=== PATIENT | male | born 1945 | race Hispanic/Latino ===

== ENCOUNTER 2021-02-28 11:28 | Emergency (ER) | payer OTHER ==
--- NOTE | 2021-02-28 12:52 | RAD REPORT ---
EXAM DESCRIPTION: US - Extremity Venous Uni Ltd - 02/28/2021 12:40 pm CLINICAL HISTORY: Pain;Swelling Leg swelling and edema. COMPARISON: No comparisons FINDINGS: Right lower extremity venous system was interrogated with Doppler technique. Normal flow, compressibility and augmentation was noted. There is no DVT present. IMPRESSION: No evidence of right lower extremity deep venous thrombosis.
--- NOTE | 2021-02-28 14:40 | ER ---
Nurse's Notes [facility] Name: Barron Stiles Age: 75 yrs Sex: Male : 1945 Arrival Date: 02/28/2021 Time: 11:50 Bed 7 Private MD: Diagnosis: Pain in right lower leg Presentation: 02/28 12:11 Chief complaint: Patient states: Was sent from the [place] clinic across the street 30 mins ca1 [employer] to r/o DVT on R leg. Reports R calf tenderness x 2 days. Denies HX of blood clots. Not on blood thinners. Coronavirus screen: Client denies travel out of the [place] in the last 14 days. At this time, the client does not indicate any symptoms associated with coronavirus-19. Ebola Screen: Patient negative for fever greater than or equal to 101.5 degrees Fahrenheit, and additional compatible Ebola Virus Disease symptoms Patient denies exposure to infectious person. Patient denies travel to an Ebola-affected area in the 21 days before illness onset. No symptoms or risks identified at this time. Initial Sepsis Screen: Does the patient meet any 2 criteria? No. Patient's initial sepsis screen is negative. Does the patient have a suspected source of infection? No. Patient's initial sepsis screen is negative. Risk Assessment: Do you want to hurt yourself or someone else? Patient reports no desire to harm self or others. Onset of symptoms was February 28, 2021. 12:11 Method Of Arrival: Ambulatory ca1 12:11 Acuity: KRISTINA 3 ca1 Historical: - Allergies: 12:13 No Known Allergies; ca1 - PMHx: 12:13 Diabetes mellitus; Hypercholesterolemia; Depressive disorder; ca1 - PSHx: 12:13 Liver Cancer Surgery; ca1 - Immunization history:: Client reports receiving the 2nd dose of the Covid vaccine, Client reports receiving the 1st dose of the Covid vaccine, Pneumococcal vaccine is up to date, Flu vaccine is up to date. - Social history:: Smoking status: Patient denies any tobacco usage or history of. Screenin:03 Abuse screen: Denies threats or abuse. Denies injuries from another. Nutritional jl7 screening: No deficits noted. Tuberculosis screening: No symptoms or risk factors identified. Fall Risk None identified. Assessment: 14:03 General: Appears in no apparent distress. uncomfortable, Behavior is calm, cooperative, jl7 appropriate for age. Pain: Complains of pain in right hip and right calf Pain currently is 4 out of 10 on a pain scale. Pain began 1 day ago. Neuro: Level of Consciousness is awake, alert, obeys commands, Oriented to person, place, time, situation. Cardiovascular: Patient's skin is warm and dry. Respiratory: Airway is patent Respiratory effort is even, unlabored, Respiratory pattern is regular, symmetrical. Derm: Skin is pink, warm \T\ dry. Musculoskeletal: Range of motion: intact in all extremities. Vital Signs: 12:11 BP 135 / 68; Pulse 55; Resp 18 S; Temp 97.7(O); Pulse Ox 97% on R/A; Weight 76.2 kg ca1 (R); Height 5 ft. 7 in. (170.18 cm) (R); Pain 4/10; 14:03 BP 141 / 70; Pulse 51; Resp 15; Pulse Ox 94% ; jl7 12:11 Body Mass Index 26.31 (76.20 kg, 170.18 cm) ca1 ED Course: 11:50 Patient arrived in ED. am2 12:12 Triage completed. ca1 12:13 Arm band placed on right wrist. ca1 12:23 Abhijit Irving MD is Attending Physician. kdr 12:40 US Extremity Venous Unilateral Ltd In Process Unspecified. EDMS 14:00 Dorinda Velasco, MAU is Primary Nurse. jl7 14:03 Patient has correct armband on for positive identification. Bed in low position. Call jl7 light in reach. Side rails up X 1. Pulse ox on. NIBP on. 14:45 No provider procedures requiring assistance completed. Patient did not have IV access jl7 during this emergency room visit. Administered Medications: No medications were administered Outcome: 14:39 Discharge ordered by . kdr 14:45 Discharged to home ambulatory. jl7 14:45 Condition: stable 14:45 Discharge instructions given to patient, Instructed on discharge instructions, follow up and referral plans. Demonstrated understanding of instructions, follow-up care. 15:14 Patient left the ED. jl7 Signatures: Dispatcher [employer] EDOK Abhijit Irving MD MD kdr Dorinda Velasco RN RN jl7 Claudia Escalante am2 Joselin Merino RN RN ca1 Corrections: (The following items were deleted from the chart) 12:14 12:13 PSHx: None; ca1 ca1 14:06 14:03 Fall Risk IV access (20 points). Total Phelan Fall Scale indicates No Risk (0-24 jl7 pts). jl7
--- NOTE | 2021-02-28 14:40 | EDPHYS ---
Physician Documentation [facility] Name: Barron Stiles Age: 75 yrs Sex: Male : 1945 Arrival Date: 02/28/2021 Time: 11:50 Bed 7 Private MD: ED Physician Abhijit Irving HPI: 02/28 14:40 This 75 yrs old Male presents to ER via Ambulatory with complaints of Leg Pain kdr - possible clot. 14:40 The patient presents with pain, that is acute. The complaints affect the right calf. kdr Context: The problem was sustained at home, resulted from an unknown cause, the patient can fully bear weight, the patient is able to ambulate, without difficulty. Onset: The symptoms/episode began/occurred gradually, 2 day(s) ago. Modifying factors: The symptoms are alleviated by nothing. the symptoms are aggravated by movement, Touch. Associated signs and symptoms: The patient has no apparent associated signs or symptoms. Treatment prior to arrival includes: no previous treatment. Severity of symptoms: At their worst the symptoms were mild, in the emergency department the symptoms are unchanged. The patient has not experienced similar symptoms in the past. The patient has been recently seen by a physician: the patient's primary care provider, The patient was seen at the [facility] and sent to ED for r/o DVT, no evidence of cellulitis. Historical: - Allergies: 12:13 No Known Allergies; ca1 - PMHx: 12:13 Diabetes mellitus; Hypercholesterolemia; Depressive disorder; ca1 - PSHx: 12:13 Liver Cancer Surgery; ca1 - Immunization history:: Client reports receiving the 2nd dose of the Covid vaccine, Client reports receiving the 1st dose of the Covid vaccine, Pneumococcal vaccine is up to date, Flu vaccine is up to date. - Social history:: Smoking status: Patient denies any tobacco usage or history of. ROS: 14:40 Constitutional: Negative for fever, chills, and weight loss, Eyes: Negative for injury, kdr pain, redness, and discharge, ENT: Negative for injury, pain, and discharge, Neck: Negative for injury, pain, and swelling, Cardiovascular: Negative for chest pain, palpitations, and edema, Respiratory: Negative for shortness of breath, cough, wheezing, and pleuritic chest pain, Abdomen/GI: Negative for abdominal pain, nausea, vomiting, diarrhea, and constipation, Back: Negative for injury and pain, : Negative for injury, bleeding, discharge, and swelling, Skin: Negative for injury, rash, and discoloration, Neuro: Negative for headache, weakness, numbness, tingling, and seizure activity. Psych: Negative for depression, anxiety, suicide ideation, homicidal ideation, and hallucinations, Allergy/Immunology: Negative for hives, rash, and allergies, Endocrine: Negative for neck swelling, polydipsia, polyuria, polyphagia, and marked weight changes, Hematologic/Lymphatic: Negative for swollen nodes, abnormal bleeding, and unusual bruising. 14:40 MS/extremity: Positive for pain, tenderness, of the right calf. Exam: 14:40 Constitutional: This is a well developed, well nourished patient who is awake, alert, kdr and in no acute distress. Head/Face: Normocephalic, atraumatic. Eyes: Pupils equal round and reactive to light, extra-ocular motions intact. Lids and lashes normal. Conjunctiva and sclera are non-icteric and not injected. Cornea within normal limits. Periorbital areas with no swelling, redness, or edema. Neck: Trachea midline, no thyromegaly or masses palpated, and no cervical lymphadenopathy. Supple, full range of motion without nuchal rigidity, or vertebral point tenderness. No Meningismus. Chest/axilla: Normal chest wall appearance and motion. Nontender with no deformity. No lesions are appreciated. Cardiovascular: Regular rate and rhythm with a normal S1 and S2. No gallops, murmurs, or rubs. Normal PMI, no JVD. No pulse deficits. Respiratory: Lungs have equal breath sounds bilaterally, clear to auscultation and percussion. No rales, rhonchi or wheezes noted. No increased work of breathing, no retractions or nasal flaring. Abdomen/GI: Soft, non-tender, with normal bowel sounds. No distension or tympany. No guarding or rebound. No evidence of tenderness throughout. Back: No spinal tenderness. No costovertebral tenderness. Full range of motion. Skin: Warm, dry with normal turgor. Normal color with no rashes, no lesions, and no evidence of cellulitis. MS/ Extremity: Pulses equal, no cyanosis. Neurovascular intact. Full, normal range of motion. Neuro: Awake and alert, GCS 15, oriented to person, place, time, and situation. Cranial nerves II-XII grossly intact. Motor strength 5/5 in all extremities. Sensory grossly intact. Cerebellar exam normal. Normal gait. Psych: Awake, alert, with orientation to person, place and time. Behavior, mood, and affect are within normal limits. 14:40 Musculoskeletal/extremity: Extremities: grossly normal except: noted in the right calf: pain, swelling, tenderness. Vital Signs: 12:11 BP 135 / 68; Pulse 55; Resp 18 S; Temp 97.7(O); Pulse Ox 97% on R/A; Weight 76.2 kg ca1 (R); Height 5 ft. 7 in. (170.18 cm) (R); Pain 4/10; 14:03 BP 141 / 70; Pulse 51; Resp 15; Pulse Ox 94% ; jl7 12:11 Body Mass Index 26.31 (76.20 kg, 170.18 cm) ca1 MDM: 14:39 Patient medically screened. kdr 14:44 Data reviewed: vital signs, radiologic studies. Counseling: I had a detailed discussion kdr with the patient and/or guardian regarding: the historical points, exam findings, and any diagnostic results supporting the discharge/admit diagnosis, radiology results, the need for outpatient follow up. 02/28 12:17 Order name: US Extremity Venous Unilateral Ltd; Complete Time: 14:23 jr8 Administered Medications: No medications were administered Disposition Summary: 02/28/21 14:39 Discharge Ordered Location: Home kdr Problem: new kdr Symptoms: are unchanged kdr Condition: Stable kdr Diagnosis - Pain in right lower leg kdr Followup: kdr - With: Private Physician - When: 2 - 3 days - Reason: If symptoms return, Further diagnostic work-up, Recheck today's complaints, Continuance of care, Re-evaluation by your physician Discharge Instructions: - Discharge Summary Sheet kdr - Musculoskeletal Pain kdr - Pain Without a Known Cause kdr - Heat Therapy, [id number] kdr Forms: - Medication Reconciliation Form kdr - Thank You Letter kdr Signatures: Dispatcher [employer] Abhijit Tuttle MD MD kdr Acob, MAU Olivera RN ca1 Corrections: (The following items were deleted from the chart) 12:14 12:13 PSHx: None; ca1 ca1 12:20 12:16 Extrmty Nonvasular Limited+US.RAD.BRZ ordered. EDMS EDMS
[2021-02-28 15:23] VITALS: TEMP 97.7
[2021-02-28 15:25] VITALS: BP 141/70; O2SAT 94
== END 2021-02-28 15:14 | disposition home or self-care (01) ==
LOC: ER 11:28
DX: M79.661 Pain in right lower leg (principal)
CPT/HCPCS: 93971; 99283

== ENCOUNTER 2022-02-12 10:22 | Emergency (ER) | payer OTHER ==
--- NOTE | 2022-02-12 10:38 | RAD REPORT ---
EXAM DESCRIPTION: CT - Ct Stroke Brain Wo Cont - 02/12/2022 10:29 am CLINICAL HISTORY: AMS COMPARISON: HEAD BRAIN W O CONTRAST dated 05/25/2009 TECHNIQUE: Axial 5 millimeter thick images of the head were obtained without IV contrast. All CT scans are performed using dose optimization technique as appropriate and may include automated exposure control or mA/KV adjustment according to patient size. FINDINGS: No intracranial hemorrhage, mass, or cerebral edema. No acute infarctions seen at the daniel ical level. There is no cortical edema or sulcal effacement identifiable. There is an area subtle dec reased attenuation in the lateral aspect of the left thalamus involving the posterior limb internal c apsule. However, this is not definitively different from 2008 comparison. No extra-axial fluid collec tions. Bach matter-white matter differentiation is preserved. No globe or orbital content abnormality. Patient has underlying atrophy that is not substantially dif ferent from 2009. Chronic ischemic changes are minimal. Ventricles are normal size. Visualized portions of the mastoid air cells, paranasal sinuses, and orbits are unremarkable. Findings telephoned to Dr Irving 10:33 a.m. IMPRESSION: No intracranial hemorrhage. No mass, edema or other emergent finding identifiable. Decreased attenuation in the lateral left thalamus and posterior limb internal capsule would be a pot ential source for right extremity weakness. However, this is not definitively different from 2009. Ongoing concerns for acute CVA can be further evaluated with MRI imaging when that modality becomes a vailable.
[2022-02-12] MEDS ORDERED: TENECTEPLASE 50 MG/10 ML VIAL IV ONE (10:45)
[2022-02-12 10:57] LABS: Hematocrit 44.3 % (39.6-49.0); Lymphocytes % 22.7 % (15.3-44.8); MCV 82.6 fL (80-100); MPV 7.4 fL (7.6-11.3); RBC Red Blood Cell Count 5.36 M/uL (4.33-5.43)
[2022-02-12 11:01] LABS: Protime INR 1.08
[2022-02-12 11:10] LABS: Potassium 3.9 mmol/L (3.5-5.1)
--- NOTE | 2022-02-12 11:34 | RAD REPORT ---
EXAM DESCRIPTION: RAD - Chest Single View - 02/12/2022 11:12 am CLINICAL HISTORY: AMS, Stroke protocol chest film COMPARISON: None TECHNIQUE: AP portable chest image was obtained 02/12/2022 11:12 am . FINDINGS: Lung volumes are very low accentuating lung markings. Interstitial stranding in the mid an d lower left lung field is potentially atelectasis, minimal edema/infiltrate or a combination. Heart and vasculature are normal. No measurable pleural effusion and no pneumothorax. No acute bony abnorma lity seen. No acute aortic findings suspected. IMPRESSION: Limited shallow inspiration shows mildly prominent lower left lung field interstitial ma rkings. On a baseline study, interstitial edema and infiltrate are both possible.
[2022-02-12] MEDS ORDERED: ASPIRIN 81 MG CHEWABLE TABLET ONE (12:10)
[2022-02-12] MEDS ORDERED: CLOPIDOGREL 75 MG TABLET ONE (12:10)
[2022-02-12] MEDS ORDERED: ATORVASTATIN 20 MG TAB ONE (12:10)
--- NOTE | 2022-02-12 13:43 | RAD REPORT ---
EXAM DESCRIPTION: MRI - Brain W/Wo Cont - 02/12/2022 1:31 pm CLINICAL HISTORY: Aphasiastroke-like symptoms, right-sided weakness COMPARISON: MRA Head Wo Cont dated 02/12/2022; MRA Neck W/Wo Cont dated 02/12/2022 TECHNIQUE: Sagittal and axial T1-weighted images were obtained. Axial PD/heavily T2-weighted and T2- FLAIR images were obtained along with axial DWI/ADC mapping sequences. Coronal heavily T2 weighted s equence obtained. Axial and coronal post-contrast T1-weighted images were also obtained. A 16 ml Mul tihance contrast following utilized. FINDINGS: Diffusion-weighted imaging shows no acute infarction. No hemorrhage is identified. There i s no mass effect, edema or shift of midline structures. Atrophy changes are minimal. Little if any id entifiable chronic ischemic change. No extra-axial fluid collections. Bach-matter/white matter juncti on is preserved. Signal voids are seen as a normal finding in the major intracranial vessels. Ventri cles are normal. No sella or supra sella abnormality. No globe or orbital content abnormality seen. Post-contrast images show normal enhancement. No dural thickening. Mastoid air cells and paranasal sinuses are clear. IMPRESSION: Negative contrast enhanced MRI of the Brain for acute intracranial process.
--- NOTE | 2022-02-12 13:46 | RAD REPORT ---
EXAM DESCRIPTION: MRI - MRA Neck W/Wo Cont - 02/12/2022 1:31 pm CLINICAL HISTORY: Aphasia, stroke-like symptoms, right-sided weakness COMPARISON: CT head same date, MRI brain same date TECHNIQUE: Axial and coronal 3D [id number] image acquisition was performed. 3D rotational images were generated with source and reconstruction images reviewed. Horizontal and vertical axis rotation al views generated using MIP protocol. FINDINGS: Aortic arch is bovine configuration. There is tortuosity of the proximal innominate, left common carotid and bilateral vertebral arteries. No great vessel or vertebral artery origin stenoses identified. Proximal and midportion of each subclavian artery unremarkable. The bilateral common carotid arteries show no dissection, atherosclerotic stenosis or significant fin ding. Left carotid bulb is unremarkable. Right carotid bulb shows luminal narrowing approximately 30- 40% relative to the left. Bilateral internal carotid arteries are otherwise unremarkable. Codominant vertebral arteries show no dissection or suspicious finding. There is tortuosity present. IMPRESSION: Non hemodynamically significant 30-40% narrowing of the right carotid bulb. MRA neck examination otherwise without significant finding.
--- NOTE | 2022-02-12 13:53 | RAD REPORT ---
EXAM DESCRIPTION: MRI - MRA Head Wo Cont - 02/12/2022 1:31 pm CLINICAL HISTORY: Right-sided weakness, slurred speech, dizziness, history of hepatic malignancy COMPARISON: CT head same date, MRI brain same date TECHNIQUE: Axial and coronal 3D [id number] image acquisition was performed. 3D rotational images were generated with source and reconstruction images reviewed. Horizontal and vertical axis rotation al views generated using MIP protocol. FINDINGS: Exam has motion degradation limitations. Distal vertebral arteries and basilar artery appear a narrowed on this examination. This is believed to be technical. These vessels have a normal appearance on the separately detailed MRA neck examinati on. No basilar stenosis. The basilar is relatively small. Patient has bilateral posterior communicati ng arteries providing a substantial amount of posterior cerebral artery circulation. This would accou nt for a small basilar artery. Atherosclerotic changes are present in the horizontal and vertical petrous portions of the left inter nal carotid artery. This causes approximately 30-40% luminal narrowing. The CT study performed earlie r shows prominent ICA calcifications. No significant luminal narrowing seen in the cavernous or supra clinoid portions of either internal carotid artery. Bilateral middle cerebral artery distribution show no named branch occlusion, vasculitis or significa nt degree of atherosclerotic change. Significant irregular contour noted in each A1 HERMAN segment. This is a portion of the examination has motion degradation. Atherosclerotic changes are probably present but not causing hemodynamically sign ificant degree of stenosis. IMPRESSION: No named branch occlusion, vasculitis or other significant intracranial atherosclerotic finding. Bilateral A1 HERMAN luminal narrowing is believed be mostly motion artifact. Atherosclerotic changes causing 30-40% luminal narrowing in the petrous portion of the left internal carotid artery.
--- NOTE | 2022-02-12 14:23 | ER ---
Nurse's Notes [facility] Name: Barron Stiles Age: 76 yrs Sex: Male : 1945 Arrival Date: 02/12/2022 Time: 10:23 Bed 7 Private MD: Diagnosis: Slurred speech;Sibuuptj-Sglla-[id number] resolved Presentation: 02/12 10:24 Chief complaint: Patient states: Sudden onset of R sided weakness, slurred speech and ss dizziness that began while in the shower at approximately 0945. Coronavirus screen: Client denies travel out of the [place] in the last 14 days. Ebola Screen: Patient denies exposure to infectious person. Patient denies travel to an Ebola-affected area in the 21 days before illness onset. An acute neurological deficit is present. Pre-hospital glucose is not applicable to this patient. Initial Sepsis Screen: Does the patient meet any 2 criteria? No. Patient's initial sepsis screen is negative. Does the patient have a suspected source of infection? No. Patient's initial sepsis screen is negative. Risk Assessment: Do you want to hurt yourself or someone else? Patient reports no desire to harm self or others. Onset of symptoms was February 12, 2022 at 09:45. 10:24 Method Of Arrival: Ambulatory ss 10:24 Acuity: KRISTINA 2 ss Triage Assessment: 10:51 The onset of the patients symptoms was less than three hours ago. The onset of the [facility] patients symptoms was February 12, 2022 at 09:30. General: Appears. General: Appears in no apparent distress. comfortable, Behavior is calm, cooperative. Pain: Denies pain. Neuro: Reports blurred vision since this am while in the shower. numbness. Stroke Activation: Symptom onset < 3 hours Physician: Stroke Attending; Name: ; Notified At: ; Arrived At: Physician: Chief Stroke Resident; Name: ; Notified At: ; Arrived At: Physician: Stroke Resident; Name: ; Notified At: ; Arrived At: Physician: ED Attending; Name: ; Notified At: ; Arrived At: Physician: ED Resident; Name: ; Notified At: ; Arrived At: Historical: - Allergies: 10:44 No Known Allergies; ss - Home Meds: 10:44 None [Active]; ss - PMHx: 10:44 Liver CA; ss - PSHx: 10:44 Liver tumor removed; ss 14:35 Liver Cancer Surgery; jh6 - Immunization history:: Client reports receiving the 2nd dose of the Covid vaccine. - Social history:: Smoking status: Patient denies any tobacco usage or history of. Screenin:51 Abuse screen: Denies threats or abuse. Denies injuries from another. Nutritional jh6 screening: No deficits noted. Tuberculosis screening: No symptoms or risk factors identified. Fall Risk Secondary diagnosis (15 points) TIA, IV access (20 points). Assessment: 10:24 VAN Scoring: Arm Drift: Patients demonstrates NO arm weakness. Patient is VAN Negative. ss Visual Disturbance: No visual disturbance noted. Aphasia: No aphasia noted. Neglect: No neglect noted. Reassessment: CODE STROKE CALLED. Pt to CT now VIA wheelchair with nurse. Pain: Denies pain. Neuro: Elkins Agitation-Sedation Scale (RASS):. Respiratory: Airway is patent Respiratory effort is even, unlabored. 10:49 VAN Scoring: Arm Drift: Patients demonstrates NO arm weakness. Patient is VAN Negative. jh6 Patient has been NPO before screening. The patient is alert, and able to follow commands. The patient does not exhibit slurred or garbled speech. The patient is not exhibiting difficulty speaking. The patient does not exhibit difficulty understanding words. The patient is able to swallow own secretions with no drooling or need for suction. Patient tolerated one teaspoon of water. No drooling, immediate coughing, gurgling, or clearing of the throat was noted. The patient tolerated 90mL of water. No drooling, immediate coughing, gurgling, or clearing of the throat was noted. The patient passed the bedside swallow screening. Oral medications may be given as ordered. Contact Physician for further diet orders. Provider notified of bedside swallow screening results: Abhijit Irving MD. T-PA (Activase) Screening: Contraindications: Rapidly improving condition or minor deficit: Yes. 12:00 Reassessment: Patient and/or family updated on plan of care and expected duration. Pain jh6 level reassessed. Patient is alert, oriented x 3, equal unlabored respirations, skin warm/dry/pink. REPORTS ONLY SLIGHT NUMBNESS FEELING IN RT HAND AND FINGER. STATES THAT HE IS FEELING BETTER. Patient states feeling better. Patient states symptoms have improved. 13:28 Reassessment: Patient and/or family updated on plan of care and expected duration. Pain jh6 level reassessed. PT IN MRI AT THIS TIME, IS AT BEDSIDE. General: Appears in no apparent distress. Vital Signs: 10:32 BP 137 / 57; Pulse 73; Resp 16; Temp 97.9(TE); Pulse Ox 95% on R/A; Weight 71.21 kg; ss Height 5 ft. 8 in. (172.72 cm); Pain 0/10; 11:06 BP 129 / 56; Pulse 65; Resp 18; Pulse Ox 98% ; Pain 0/10; jh6 11:30 BP 130 / 63; Pulse 63; Resp 17; Temp 98.0(O); Pulse Ox 97% ; Pain 0/10; jh6 12:15 BP 119 / 54; Pulse 60; Resp 16; Pulse Ox 100% ; Pain 0/10; jh6 14:20 BP 122 / 60; Pulse 62; Resp 17; Pulse Ox 100% ; Pain 0/10; jh6 10:32 Body Mass Index 23.87 (71.21 kg, 172.72 cm) ss NIH Stroke Scale Scores: 10:49 NIHSS Score: 0 jh6 13:34 NIHSS Score: 0 kdr ED Course: 10:23 Patient arrived in ED. mr 10:24 Abhijit Irving MD is Attending Physician. kdr 10:25 Sheela Quesada, MAU is Primary Nurse. jh6 10:31 CT Stroke Brain w/o Contrast In Process Unspecified. EDMS 10:32 Arm band placed on right wrist. ss 10:35 Placed in gown. Bed in low position. Call light in reach. Side rails up X 1. Adult w/ jh6 patient. 10:44 Triage completed. ss 10:49 No provider procedures requiring assistance completed. Inserted saline lock: 20 gauge box in right forearm, using aseptic technique. 11:14 Stroke CXR 1 View In Process Unspecified. EDMS 13:00 Patient moved to MRI. jh6 13:32 MRA Head Wo Cont In Process Unspecified. EDMS 13:32 Brain W/Wo Cont In Process Unspecified. EDMS 13:32 MRA Neck W/Wo Cont In Process Unspecified. EDMS 14:34 intact, bleeding controlled, No redness/swelling at site. Pressure dressing applied. 6 Administered Medications: 12:09 Drug: Aspirin 81 mg Route: PO; jh6 14:35 Follow up: Response: No adverse reaction [facility] 12:09 Drug: PlaVIX (clopidogrel) 75 mg Route: PO; 6 14:35 Follow up: Response: No adverse reaction [facility] 12:09 Drug: Lipitor (atorvastatin) 20 mg Route: PO; 6 14:35 Follow up: Response: No adverse reaction [facility] Medication: 14:35 VIS not applicable for this client. [facility] Point of Care Testing: Blood Glucose: 10:45 Blood Glucose: 163 mg/dL; [facility] Ranges: Outcome: 14:22 Discharge ordered by . kdr 14:34 Discharged to home ambulatory. [facility] 14:34 Condition: good 14:34 Discharge instructions given to patient, family, Instructed on discharge instructions, follow up and referral plans. Demonstrated understanding of instructions, follow-up care, medications, Prescriptions given X 3. 14:54 Patient left the ED. NIH Stroke Scale - NIH Stroke Score Date: 02/12/2022 Time: 10:49 Total Score = 0 1a. Level of Consciousness (LOC) - 0(Alert) 1b. Level of Consciousness (LOC) (Month \T\ Age) - 0(Both) 1c. LOC Commands (Open \T\ Closes Eyes/Clinical Interviewer) - 0(Both) 2. Best Gaze (Lateral Gaze Paresis) - 0(Normal) 3. Visual Field Loss - 0(No visual loss) 4. Facial Palsy - 0(Normal) 5a. Left Arm: Motor (10-second hold) - 0(No drift) 5b. Right Arm: Motor (10-second hold) - 0(No drift) 6a. Left Leg: Motor (5-second hold - always test supine) - 0(No drift) 6b. Right Leg: Motor (5-second hold - always test supine) - 0(No drift) 7. Limb Ataxia (finger/nose \T\ heel/melchor - test with eyes open) - 0(Absent) 8. Sensory Loss (pinprick arms/legs/face) - 0(Normal) 9. Best Language: Aphasia (description/naming/reading) - 0(No aphasia) 10. Dysarthria (speech clarity - read or repeat words) - 0(Normal) 11. Extinction and Inattention (visual/tactile/auditory/spatial/personal) - 0(No abnormality) Initials: [facility] NIH Stroke Scale - NIH Stroke Score Date: 02/12/2022 Time: 13:34 Total Score = 0 1a. Level of Consciousness (LOC) - 0(Alert) 1b. Level of Consciousness (LOC) (Month \T\ Age) - 0(Both) 1c. LOC Commands (Open \T\ Closes Eyes/Clinical Interviewer) - 0(Both) 2. Best Gaze (Lateral Gaze Paresis) - 0(Normal) 3. Visual Field Loss - 0(No visual loss) 4. Facial Palsy - 0(Normal) 5a. Left Arm: Motor (10-second hold) - 0(No drift) 5b. Right Arm: Motor (10-second hold) - 0(No drift) 6a. Left Leg: Motor (5-second hold - always test supine) - 0(No drift) 6b. Right Leg: Motor (5-second hold - always test supine) - 0(No drift) 7. Limb Ataxia (finger/nose \T\ heel/melchor - test with eyes open) - 0(Absent) 8. Sensory Loss (pinprick arms/legs/face) - 0(Normal) 9. Best Language: Aphasia (description/naming/reading) - 0(No aphasia) 10. Dysarthria (speech clarity - read or repeat words) - 0(Normal) 11. Extinction and Inattention (visual/tactile/auditory/spatial/personal) - 0(No abnormality) Initials: kdr Signatures: Dispatcher [employer] EDMS Abhijit Irving MD MD kdr Rivera, Mary mr Smirch, Shelby, RN RN ss Hastedt, Jennifer, RN RN [facility] Grace Velasco RN RN Corrections: (The following items were deleted from the chart) 10:46 10:44 PMHx: depressive disorder; ss ss 10:46 10:44 PMHx: diabetes mellitus; ss ss 10:46 10:44 PMHx: Hypercholesterolemia; ss 11:04 10:49 NIHSS Score: 2 [place] [id number]
--- NOTE | 2022-02-12 14:23 | EDPHYS ---
Physician Documentation [facility] Name: Barron Stiles Age: 76 yrs Sex: Male : 1945 Arrival Date: 02/12/2022 Time: 10:23 Bed 7 Private MD: ED Physician Abhijit Irving HPI: 02/12 10:46 This 76 yrs old Male presents to ER via Ambulatory with complaints of Slurred kdr Speech, Numbness Of Arm. 10:46 The patient presents to the emergency department with a speech or higher order brain kdr function problem, aphasia. Onset: The symptoms/episode began/occurred suddenly, just prior to arrival, at 09:45. Context: occurred at home, occurred while the patient was at rest. Associated signs and symptoms: The patient has no apparent associated signs or symptoms. Severity of symptoms: At their worst the symptoms were mild in the emergency department the symptoms have resolved By the time of my exam on return from CT. Patient's baseline: Neuro: alert and fully oriented, Motor: right-sided weakness, Ambulation: walks without assistance, Speech: slurred, The patient has a previous history of DM. Current symptoms: Currently, the patient is not experiencing any symptoms, the patient feels back to baseline, Only slight paresthesia to right upper extremity. The patient has not experienced similar symptoms in the past. The patient has not recently seen a physician. Historical: - Allergies: 10:44 No Known Allergies; ss - Home Meds: 10:44 None [Active]; ss - PMHx: 10:44 Liver CA; ss - PSHx: 10:44 Liver tumor removed; 14:35 Liver Cancer Surgery; 6 - Immunization history:: Client reports receiving the 2nd dose of the Covid vaccine. - Social history:: Smoking status: Patient denies any tobacco usage or history of. ROS: 10:57 Constitutional: Negative for fever, chills, and weight loss, Eyes: Negative for injury, kdr pain, redness, and discharge, ENT: Negative for injury, pain, and discharge, Neck: Negative for injury, pain, and swelling, Cardiovascular: Negative for chest pain, palpitations, and edema, Respiratory: Negative for shortness of breath, cough, wheezing, and pleuritic chest pain, Abdomen/GI: Negative for abdominal pain, nausea, vomiting, diarrhea, and constipation, Back: Negative for injury and pain, : Negative for injury, bleeding, discharge, and swelling, MS/Extremity: Negative for injury and deformity, Skin: Negative for injury, rash, and discoloration, Psych: Negative for depression, anxiety, suicide ideation, homicidal ideation, and hallucinations, Allergy/Immunology: Negative for hives, rash, and allergies, Endocrine: Negative for neck swelling, polydipsia, polyuria, polyphagia, and marked weight changes, Hematologic/Lymphatic: Negative for swollen nodes, abnormal bleeding, and unusual bruising. 10:57 Neuro: Positive for speech changes, tingling. Exam: 10:57 Constitutional: This is a well developed, well nourished patient who is awake, alert, kdr and in no acute distress. Head/Face: Normocephalic, atraumatic. Eyes: Pupils equal round and reactive to light, extra-ocular motions intact. Lids and lashes normal. Conjunctiva and sclera are non-icteric and not injected. Cornea within normal limits. Periorbital areas with no swelling, redness, or edema. Neck: Trachea midline, no thyromegaly or masses palpated, and no cervical lymphadenopathy. Supple, full range of motion without nuchal rigidity, or vertebral point tenderness. No Meningismus. Chest/axilla: Normal chest wall appearance and motion. Nontender with no deformity. No lesions are appreciated. Cardiovascular: Regular rate and rhythm with a normal S1 and S2. No gallops, murmurs, or rubs. Normal PMI, no JVD. No pulse deficits. Respiratory: Lungs have equal breath sounds bilaterally, clear to auscultation and percussion. No rales, rhonchi or wheezes noted. No increased work of breathing, no retractions or nasal flaring. Abdomen/GI: Soft, non-tender, with normal bowel sounds. No distension or tympany. No guarding or rebound. No evidence of tenderness throughout. Back: No spinal tenderness. No costovertebral tenderness. Full range of motion. Skin: Warm, dry with normal turgor. Normal color with no rashes, no lesions, and no evidence of cellulitis. MS/ Extremity: Pulses equal, no cyanosis. Neurovascular intact. Full, normal range of motion. Psych: Awake, alert, with orientation to person, place and time. Behavior, mood, and affect are within normal limits. 10:57 Neuro: Orientation: is normal, Mentation: is normal, Memory: is normal, Cranial nerves: grossly normal, Cerebellar function: is grossly normal, Motor: is normal, Sensation: tingling, that is mild, of the right arm, seizure activity, is not displayed by the patient, Abnormal movements: there are no abnormal movements. 13:33 ECG was reviewed by the Attending Physician. kdr Vital Signs: 10:32 BP 137 / 57; Pulse 73; Resp 16; Temp 97.9(TE); Pulse Ox 95% on R/A; Weight 71.21 kg; ss Height 5 ft. 8 in. (172.72 cm); Pain 0/10; 11:06 BP 129 / 56; Pulse 65; Resp 18; Pulse Ox 98% ; Pain 0/10; jh6 11:30 BP 130 / 63; Pulse 63; Resp 17; Temp 98.0(O); Pulse Ox 97% ; Pain 0/10; jh6 12:15 BP 119 / 54; Pulse 60; Resp 16; Pulse Ox 100% ; Pain 0/10; jh6 14:20 BP 122 / 60; Pulse 62; Resp 17; Pulse Ox 100% ; Pain 0/10; jh6 10:32 Body Mass Index 23.87 (71.21 kg, 172.72 cm) NIH Stroke Scale Scores: 10:49 NIHSS Score: 0 jh6 13:34 NIHSS Score: 0 kdr MDM: 14:22 Patient medically screened. kdr 16:45 Data reviewed: vital signs, nurses notes, lab test result(s), radiologic studies. kdr Counseling: I had a detailed discussion with the patient and/or guardian regarding: the historical points, exam findings, and any diagnostic results supporting the discharge/admit diagnosis, lab results, radiology results, the need for outpatient follow up. 02/12 10:25 Order name: Basic Metabolic Panel; Complete Time: 14:12 kdr 02/12 10:25 Order name: CBC with Diff; Complete Time: 11:08 kdr 02/12 10:25 Order name: Protime (+inr); Complete Time: 11:08 kdr 02/12 10:25 Order name: Ptt, Activated; Complete Time: 11: kdr 02/12 10:25 Order name: CT Stroke Brain w/o Contrast; Complete Time: 11: kdr 02/12 10:55 Order name: Glucose, Ancillary Testing; Complete Time: 11:08 EDMS 02/12 10:25 Order name: Stroke CXR 1 View; Complete Time: 14:12 kdr 02/12 12:21 Order name: MRA Head Wo Cont; Complete Time: 14:12 EDMS 02/12 12:21 Order name: Brain W/Wo Cont; Complete Time: 14:12 EDMS 02/12 12:22 Order name: MRA Neck W/Wo Cont; Complete Time: 14:12 EDMS 02/12 10:25 Order name: EKG; Complete Time: 10:25 kdr 02/12 10:25 Order name: Accucheck; Complete Time: 10:49 kdr 02/12 10:25 Order name: Cardiac monitoring; Complete Time: 10:48 kdr 02/12 10:25 Order name: EKG - Nurse/Tech; Complete Time: 10:48 kdr 02/12 10:25 Order name: IV Saline Lock; Complete Time: 10:48 kdr 02/12 10:25 Order name: Labs collected and sent; Complete Time: 10:48 kdr 02/12 10:25 Order name: NPO; Complete Time: 10:48 kdr 02/12 10:25 Order name: O2 Per Protocol; Complete Time: 10:48 kdr 02/12 10:25 Order name: O2 Sat Monitoring; Complete Time: 10:48 kdr 02/12 10:25 Order name: Stroke Swallow Screen; Complete Time: 10:48 kdr EC:33 Rate is 70 beats/min. Rhythm is regular, Sinus Rhythm with No ectopy, Right bundle kdr branch block. QRS [place] is Normal. OR interval is normal. QRS interval is normal. Clinical impression: NSR w/ Non-specific ST/T Changes. Administered Medications: 12:09 Drug: Aspirin 81 mg Route: PO; 6 14:35 Follow up: Response: No adverse reaction [facility] 12:09 Drug: PlaVIX (clopidogrel) 75 mg Route: PO; 6 14:35 Follow up: Response: No adverse reaction [facility] 12:09 Drug: Lipitor (atorvastatin) 20 mg Route: PO; jh6 14:35 Follow up: Response: No adverse reaction [facility] Point of Care Testing: Blood Glucose: 10:45 Blood Glucose: 163 mg/dL; [facility] Ranges: Critical Glucose Levels:Adult <50 mg/dl or >400 mg/dl <40 mg/dl or >180 mg/dl Disposition: 16:45 Co-signature as Attending Physician, Abhijit Irving MD. kdr Disposition Summary: 02/12/22 14:22 Discharge Ordered Location: Home kdr Problem: new kdr Symptoms: have improved kdr Condition: Stable kdr Diagnosis - Slurred speech kdr - Weakness - Right-sided resolved kdr Followup: kdr - With: Private Physician - When: 2 - 3 days - Reason: If symptoms return, Further diagnostic work-up, Recheck today's complaints, Continuance of care, Re-evaluation by your physician Discharge Instructions: - Discharge Summary Sheet kdr - Weakness, [id number] kdr Forms: - Medication Reconciliation Form kdr - Thank You Letter kdr Prescriptions: - Suresh Chewable Aspirin 81 mg Oral tablet,chewable - chew 1 tablet by ORAL route once daily; 30 tablet; Refills: 0, Product kdr Selection Permitted - Lipitor 10 mg Oral Tablet - take 1 tablet by ORAL route once daily; 30 tablet; Refills: 0, Product kdr Selection Permitted - Plavix 75 mg Oral Tablet - take 1 tablet by ORAL route once daily; 20 tablet; Refills: 0, Product kdr Selection Permitted NIH Stroke Scale - NIH Stroke Score Date: 02/12/2022 Time: 10:49 Total Score = 0 1a. Level of Consciousness (LOC) - 0(Alert) 1b. Level of Consciousness (LOC) (Month \T\ Age) - 0(Both) 1c. LOC Commands (Open \T\ Closes Eyes/[employer]visor [employer]) - 0(Both) 2. Best Gaze (Lateral Gaze Paresis) - 0(Normal) 3. Visual Field Loss - 0(No visual loss) 4. Facial Palsy - 0(Normal) 5a. Left Arm: Motor (10-second hold) - 0(No drift) 5b. Right Arm: Motor (10-second hold) - 0(No drift) 6a. Left Leg: Motor (5-second hold - always test supine) - 0(No drift) 6b. Right Leg: Motor (5-second hold - always test supine) - 0(No drift) 7. Limb Ataxia (finger/nose \T\ heel/melchor - test with eyes open) - 0(Absent) 8. Sensory Loss (pinprick arms/legs/face) - 0(Normal) 9. Best Language: Aphasia (description/naming/reading) - 0(No aphasia) 10. Dysarthria (speech clarity - read or repeat words) - 0(Normal) 11. Extinction and Inattention (visual/tactile/auditory/spatial/personal) - 0(No abnormality) Initials: jh6 NIH Stroke Scale - NIH Stroke Score Date: 02/12/2022 Time: 13:34 Total Score = 0 1a. Level of Consciousness (LOC) - 0(Alert) 1b. Level of Consciousness (LOC) (Month \T\ Age) - 0(Both) 1c. LOC Commands (Open \T\ Closes Eyes/Supervisor [employer]) - 0(Both) 2. Best Gaze (Lateral Gaze Paresis) - 0(Normal) 3. Visual Field Loss - 0(No visual loss) 4. Facial Palsy - 0(Normal) 5a. Left Arm: Motor (10-second hold) - 0(No drift) 5b. Right Arm: Motor (10-second hold) - 0(No drift) 6a. Left Leg: Motor (5-second hold - always test supine) - 0(No drift) 6b. Right Leg: Motor (5-second hold - always test supine) - 0(No drift) 7. Limb Ataxia (finger/nose \T\ heel/melchor - test with eyes open) - 0(Absent) 8. Sensory Loss (pinprick arms/legs/face) - 0(Normal) 9. Best Language: Aphasia (description/naming/reading) - 0(No aphasia) 10. Dysarthria (speech clarity - read or repeat words) - 0(Normal) 11. Extinction and Inattention (visual/tactile/auditory/spatial/personal) - 0(No abnormality) Initials: kdr Signatures: Dispatcher [employer] EDMS Abhijit Irving MD MD [facility] [place] RN RN Sheela Quesada RN RN 6 Corrections: (The following items were deleted from the chart) 10:46 10:44 PMHx: depressive disorder; ss ss 10:46 10:44 PMHx: diabetes mellitus; ss ss 10:46 10:44 PMHx: Hypercholesterolemia; ss 12:21 10:36 MR STROKE PROTOCOL+MRI.RAD.BRZ ordered. EDMS EDMS
[2022-02-12 17:15] VITALS: TEMP 98
[2022-02-12 17:17] VITALS: O2SAT 100
[2022-02-12 17:18] VITALS: BP 122/60
--- NOTE | 2022-02-14 08:00 | EKG ---
Test Date: 2022-02-12 Test Time: 10:37:51 [employer] Employee: MATT MEASUREMENT RESULTS: Intervals: Rate: 70 NE: 168 QRSD: 154 QT: 438 QTc: 473 [place]: P: 50 NE: 168 QRS: 257 T: 28 INTERPRETIVE STATEMENTS: Normal sinus rhythm Right bundle branch block Abnormal ECG No previous ECG available for comparison Electronically Signed On 02-14-22 07:55:50 CDT by Bear Anaya
== END 2022-02-12 14:54 | disposition home or self-care (01) ==
LOC: ER 10:22
DX: R47.81 Slurred speech (principal); R20.2 Paresthesia of skin; Z85.05 Personal history of malignant neoplasm of liver
CPT/HCPCS: 93005; 85025; 80048; 36415; 85610; 82947; 85730; 70450; 71045; 70553; 70544; 70549; 99284; A9577; J3101

== ENCOUNTER 2023-09-13 13:08 | Inpatient (IN) | payer OTHER ==
[2023-09-13 13:49] LABS: Hematocrit 39.9 % (39.6-49.0); Lymphocytes % 22.8 % (15.3-44.8); MCV 81.1 fL (80-100); MPV 7.2 fL (7.6-11.3); Platelets 129 thou/uL (152-406); RBC Red Blood Cell Count 4.92 M/uL (4.33-5.43)
[2023-09-13 13:57] LABS: Protime INR 1.08
[2023-09-13 14:09] LABS: Albumin 3.6 g/dL (3.4-5.0); Bilirubin Direct 0.2 mg/dL (0-0.2); Bilirubin Indirect, Calculated 0.4 mg/dL (0.2-0.8); Bilirubin Total 0.6 mg/dL (0.2-1.0); Potassium 3.5 mEq/L (3.5-5.1); Troponin High Sensitivity 5.2 pg/mL (<58.9)
[2023-09-13] MEDS ORDERED: NA CHLORIDE 0.9% 1,000 ML ONE (14:13)
[2023-09-13 14:40] LABS: SARS-CoV-2 Antigen Rapid Res Negative (Negative)
--- NOTE | 2023-09-13 14:42 | RAD REPORT ---
EXAM DESCRIPTION: CT - Head Brain Wo Cont - 09/13/2023 1:45 pm CLINICAL HISTORY: DIZZINESS COMPARISON: Ct Stroke Brain Wo Cont dated 02/12/2022; HEAD BRAIN W O CONTRAST dated 05/25/2009 TECHNIQUE: Noncontrast head CT images were obtained without IV contrast. Multiplanar reformats were generated and reviewed. All CT scans are performed using dose optimization technique as appropriate and may include automated exposure control or mA/KV adjustment according to patient size. FINDINGS: No intracranial hemorrhage, mass, or edema. Midline structures are unremarkable. Normal ventricular caliber for age. Bach-white matter differentiation is preserved, without evidence of acute infarct. No abnormal extra- axial fluid collections. Sequelae of canal wall down mastoidectomy. Visualized portions of the paranasal sinuses are clear. No acute bony findings. IMPRESSION: No evidence of an acute intracranial process.
[2023-09-13 14:51] LABS: Specific Gravity 1.022 (1.005-1.030); Urine Bilirubin NEGATIVE (Negative); Urine Blood Negative (Negative); Urine Clarity Clear (Clear); Urine Color Light-Yellow (Yellow); Urine Glucose NEGATIVE (Negative); Urine Protein NEGATIVE (Negative); Urine Urobilinogen Normal (Normal); Urine pH 5.5 (5.0-7.0)
--- NOTE | 2023-09-13 15:38 | RAD REPORT ---
[facility] 1:59 pm CLINICAL HISTORY: CHEST PAIN COMPARISON: Chest Single View dated 02/12/2022 TECHNIQUE: Portable AP view of the chest. FINDINGS: The lungs are clear. Elevation of the right hemidiaphragm again seen. No pneumothorax or e ffusion. The cardiomediastinal contours are unremarkable. IMPRESSION: No acute cardiopulmonary process.
--- NOTE | 2023-09-13 15:55 | ER ---
Nurse's Notes [facility] Name: Barron Stiles Age: 78 yrs Sex: Male : 1945 Arrival Date: 09/13/2023 Time: 13:08 Bed 19 Private MD: Diagnosis: Chest pain, unspecified;Dizziness and giddiness Presentation: 09/13 13:20 Chief complaint: Patient states: WAS UPSTAIRS DOING [employer] WORK AND SUDDENLY db STARTED FEELING DIZZY X 4 HRS. STATES HAS WEAKNESS, DIZZINESS AND MIDDLE CHEST PAIN. STATES STARTED HAVING SIMILAR SYMPTOMS BUT FEELS BETTER NOW. Coronavirus screen: Client denies travel out of the [place] in the last 14 days. At this time, the client does not indicate any symptoms associated with coronavirus-19. Ebola Screen: Patient negative for fever greater than or equal to 101.5 degrees Fahrenheit, and additional compatible Ebola Virus Disease symptoms Patient denies exposure to infectious person. Patient denies travel to an Ebola-affected area in the 21 days before illness onset. No symptoms or risks identified at this time. No acute neurological deficit is noted. 13:20 Method Of Arrival: Wheelchair db 13:20 Initial Sepsis Screen: Does the patient meet any 2 criteria? No. Patient's initial db sepsis screen is negative. Does the patient have a suspected source of infection? No. Patient's initial sepsis screen is negative. Risk Assessment: Do you want to hurt yourself or someone else? Patient reports no desire to harm self or others. Onset of symptoms was September 13, 2023. 13:20 Acuity: KRISTINA 2 db Triage Assessment: 13:34 General: Appears in no apparent distress. comfortable, Behavior is calm, cooperative. db Pain: Complains of pain in chest. Neuro: Level of Consciousness is awake, alert, obeys commands, Oriented to person, place, time, situation. Respiratory: Airway is patent Respiratory effort is even, unlabored, Respiratory pattern is regular, symmetrical. Historical: - Allergies: 13:34 No Known Allergies; db - PMHx: 13:34 Liver CA; Diabetes mellitus; db - PSHx: 13:34 Liver Cancer Surgery; liver tumor removed; db - Immunization history:: Adult Immunizations unknown. - Social history:: Smoking status: Patient denies any tobacco usage or history of. Screenin:30 [facility] ED Fall Risk Assessment (Adult) History of falling in the last 3 months, me1 including since admission No falls in past 3 months (0 pts) Confusion or Disorientation No (0 pts) Intoxicated or Sedated No (0 pts) Impaired Gait No (0 pts) Mobility Assist Device Used No (0 pt) Altered Elimination No (0 pt) Score/Fall Risk Level 0 - 2 = Low Risk Maintained a safe environment, Provided non-skid footwear, Hourly rounding (assess needs \T\ fall precautionary measures) done. Abuse screen: Denies threats or abuse. Nutritional screening: No deficits noted. Tuberculosis screening: No symptoms or risk factors identified. Assessment: 13:30 General: Appears uncomfortable, well groomed, well developed, well nourished, Behavior me1 is calm, cooperative, appropriate for age, Reports STATES WAS UPSTAIRS DOING [employer] WORK AND SUDDENLY STARTED FEELING DIZZY X 4 HRS. STATES HAS WEAKNESS, DIZZINESS AND MIDDLE CHEST PAIN. STATES STARTED HAVING SIMILAR SYMPTOMS BUT FEELS BETTER NOW. Pain: Denies pain. Neuro: Level of Consciousness is awake, alert, obeys commands, Oriented to person, place, time, situation, Appropriate for age Reports dizziness. Cardiovascular: Reports chest pain, Capillary refill < 3 seconds Patient's skin is warm and dry. Respiratory: Airway is patent Trachea midline Respiratory effort is even, unlabored, Respiratory pattern is regular, symmetrical. 15:39 General: Stood patient next to stretcher in an attempt to ambulate. Upon standing me1 patient c/o dizziness. Stood with patient for some time and he continued to be dizzy. Assisted back onto stretcher. Informed BELLA Partida that patient was unable to ambulate at this time due to dizziness. . Vital Signs: 13:20 BP 172 / 70; Pulse 88; Resp 18; Temp 98; Pulse Ox 93% on R/A; Weight 71.67 kg; Height 5 db ft. 7 in. ; 13:30 BP 170 / 76; Pulse 92; Resp 16; Pulse Ox 94% on R/A; me1 14:00 BP 157 / 71 LA Supine (auto/reg); Pulse 88 MON; ds4 14:03 BP 167 / 78 LA Sitting (auto/reg); Pulse 90 MON; ds4 14:06 BP 165 / 74 LA Standing (auto/reg); Pulse 90 MON; ds4 14:30 BP 194 / 84; Pulse 98; Resp 14; Pulse Ox 96% on R/A; me1 15:30 BP 170 / 76; Pulse 97; Resp 18; Pulse Ox 95% on R/A; me1 16:30 BP 159 / 81; Pulse 92; Resp 16; Pulse Ox 96% on R/A; me1 17:21 BP 148 / 70; Pulse 87; Resp 18; Pulse Ox 95% on R/A; me1 13:20 Body Mass Index 24.75 (71.67 kg, 170.18 cm) db ED Course: 13:10 Patient arrived in ED. rg4 13:10 Yue Rey PA-C is PHCP. sb4 13:10 Hu Aldrich DO is Attending Physician. sb4 13:26 Dari Boles, MAU is Primary Nurse. me1 13:30 Patient has correct armband on for positive identification. Bed in low position. Call me1 light in reach. Side rails up X2. Provided Education on: POC. Verbalized understanding. . 13:30 No provider procedures requiring assistance completed. me1 13:34 Triage completed. db 13:34 Arm band placed on Patient placed in an exam room. db 13:38 Inserted saline lock: 20 gauge in right forearm, using aseptic technique. me1 13:38 Basic Metabolic Panel Sent. me1 13:38 CBC with Diff Sent. me1 13:38 Hepatic Function Sent. me1 13:38 Magnesium Sent. me1 13:38 Protime (+inr) Sent. me1 13:38 Troponin High Sensitivity Sent. me1 13:47 CT Head Brain wo Cont In Process Unspecified. EDMS 13:59 Chest Single View XRAY In Process Unspecified. EDMS 14:22 SARS RAPID Sent. me1 14:22 Flu Sent. me1 15:54 Lanie Mullen MD is Hospitalizing Provider. sb4 17:10 Patient admitted, IV remains in place. me1 Administered Medications: 14:16 Drug: NS 0.9% IV 1000 ml IV at 1 bolus Per protocol; 1000 mL bolus Route: IV; Rate: 1 me1 bolus; Site: right forearm; 15:41 Follow up: IV Status: Completed infusion; IV Intake: 1000ml me1 Medication: 13:30 VIS not applicable for this client. me1 Intake: 15:41 IV: 1000ml; Total: 1000ml. me1 Outcome: 15:55 Decision to Hospitalize by Provider. sb4 17:10 Condition: stable me1 17:12 Instructed on the need for admit, me1 17:21 Admitted to Med/surg accompanied by tech, via wheelchair, room 204, with chart, Report me1 called to MAU Chua 17:46 Patient left the ED. mb9 Signatures: Dispatcher [employer] EDMS Surinder [email or web address] Dalia Tanner4 Viridiana Foster, RN RN Yue Mauricio, PA-C PA-C [email or web address] Hanna Anderson, RN RN mb9 Dari Boles, RN RN me1 Corrections: (The following items were deleted from the chart) 13:48 13:38 PTT, ACTIVATED+COAG.LAB.BRZ drawn and sent. me1 EDMS 14:49 13:20 Chief complaint: Patient states: WAS UPSTAIRS DOING [employer] WORK AND me1 SUDDENLY STARTED FEELING DIZZY X 4 HRS. STATES HAS WEAKNESS, DIZZINESS AND MIDDLE CHEST PAIN. STATES STARTED HAVING SIMILAR SYMPTOMS BUT FEELS BETTER NOW db
--- NOTE | 2023-09-13 15:55 | EDPHYS ---
[facility] Name: Barron Stiles Age: 78 yrs Sex: Male : 1945 Arrival Date: 09/13/2023 Time: 13:08 Bed 19 Private MD: ED Physician Hu Aldrich HPI: 09/13 13:36 This 78 yrs old Male presents to ER via Wheelchair with complaints of General sb4 Weakness, Dizziness, Chest Pain. 13:45 Patient states that he was upstairs in his house working with some sheet rock when he sb4 started to feel dizzy. He went downstairs to tell his , who also stated that she was feeling dizzy. They thought it might have been a gas leak so they open the windows, but the symptoms did not improve. Noted to be unsteady on his feet upon arrival. He is also complaining of some tinnitus and left-sided chest pain. Denies any nausea, vomiting, shortness of breath, numbness/tingling. Historical: - Allergies: 13:34 No Known Allergies; db - PMHx: 13:34 Liver CA; Diabetes mellitus; db - PSHx: 13:34 Liver Cancer Surgery; liver tumor removed; db - Immunization history:: Adult Immunizations unknown. - Social history:: Smoking status: Patient denies any tobacco usage or history of. ROS: 13:45 Constitutional: Negative for fever, chills, and weight loss, sb4 13:45 ENT: Positive for tinnitus, 13:45 Cardiovascular: Positive for chest pain, 13:45 MS/extremity: 13:45 Neuro: Positive for dizziness, gait disturbance, 13:45 All other systems are negative, Exam: 13:45 Head/Face: Normocephalic, atraumatic. Eyes: Extra-ocular motions intact. Periorbital sb4 areas with no swelling, redness, or edema. ENT: Mucous membranes moist. Cardiovascular: Regular rate and rhythm with a normal S1 and S2. Respiratory: Lungs have equal breath sounds bilaterally, clear to auscultation and percussion. No rales, rhonchi or wheezes noted. No increased work of breathing, no retractions or nasal flaring. Abdomen/GI: Soft, non-tender, no distension. Skin: Warm, dry with normal turgor. Normal color with no rashes, no lesions, and no evidence of cellulitis. MS/ Extremity: Pulses equal, no cyanosis. Neurovascular intact. Full, normal range of motion. Neuro: Awake and alert, GCS 15, oriented to person, place, time, and situation. Motor strength 5/5 in all extremities. Sensory grossly intact. 13:45 Constitutional: The patient appears alert, awake, uncomfortable, Vital Signs: 13:20 BP 172 / 70; Pulse 88; Resp 18; Temp 98; Pulse Ox 93% on R/A; Weight 71.67 kg; Height 5 db ft. 7 in. ; 13:30 BP 170 / 76; Pulse 92; Resp 16; Pulse Ox 94% on R/A; me1 14:00 BP 157 / 71 LA Supine (auto/reg); Pulse 88 MON; ds4 14:03 BP 167 / 78 LA Sitting (auto/reg); Pulse 90 MON; ds4 14:06 BP 165 / 74 LA Standing (auto/reg); Pulse 90 MON; ds4 14:30 BP 194 / 84; Pulse 98; Resp 14; Pulse Ox 96% on R/A; me1 15:30 BP 170 / 76; Pulse 97; Resp 18; Pulse Ox 95% on R/A; me1 16:30 BP 159 / 81; Pulse 92; Resp 16; Pulse Ox 96% on R/A; me1 17:21 BP 148 / 70; Pulse 87; Resp 18; Pulse Ox 95% on R/A; me1 13:20 Body Mass Index 24.75 (71.67 kg, 170.18 cm) db MDM: 13:25 Patient medically screened. sb4 13:45 Differential diagnosis: CVA, TIA, carbon monoxide poisoning, vertigo, ACS, hypovolemia, sb4 covid, flu. 15:54 Data reviewed: vital signs, nurses notes, lab test result(s), EKG, radiologic studies, sb4 and as a result, I will admit patient. Consideration of Admission/Observation Patient was admitted/placed on observation. Care significantly affected by the following chronic conditions: Diabetes. Counseling: I had a detailed discussion with the patient and/or guardian regarding the historical points, exam findings, and any diagnostic results supporting the discharge/admit diagnosis, the presence of at least one elevated blood pressure reading (>120/80) during this emergency department visit, lab results, radiology results, the need for further work-up and treatment in the hospital. 09/13 13:31 Order name: Basic Metabolic Panel; Complete Time: 14:11 sb4 09/13 13:31 Order name: CBC with Diff; Complete Time: 13:52 sb4 09/13 13:31 Order name: Hepatic Function; Complete Time: 14:11 sb4 09/13 13:31 Order name: Magnesium; Complete Time: 14:11 sb4 09/13 13:31 Order name: Protime (+inr); Complete Time: 13:59 sb4 09/13 13:31 Order name: Troponin High Sensitivity; Complete Time: 14:11 sb4 09/13 13:31 Order name: Urinalysis w/ reflexes; Complete Time: 14:51 sb4 09/13 13:32 Order name: SARS RAPID; Complete Time: 14:41 sb4 09/13 13:32 Order name: Flu; Complete Time: 14:54 sb4 09/13 13:51 Order name: PTT, Activated Partial Thromb; Complete Time: 13:59 EDMS 09/13 16:52 Order name: NT PRO-BNP EDMS 09/13 16:52 Order name: T4 Free EDMS 09/13 16:52 Order name: Basic Metabolic Panel EDMS 09/13 16:52 Order name: Basic Metabolic Panel EDMS 09/13 16:52 Order name: Basic Metabolic Panel EDMS 09/13 16:52 Order name: Basic Metabolic Panel EDMS 09/13 16:52 Order name: CBC with Automated Diff EDMS 09/13 16:52 Order name: CBC with Automated Diff EDMS 09/13 16:52 Order name: CBC with Automated Diff EDMS 09/13 16:52 Order name: CBC with Automated Diff EDMS 09/13 16:52 Order name: Creatine Phosphokinase EDMS 09/13 16:52 Order name: Creatine Phosphokinase EDMS 09/13 16:52 Order name: Creatine Phosphokinase EDMS 09/13 16:52 Order name: Lipid Profile EDMS 09/13 16:52 Order name: Lipid Profile EDMS 09/13 16:52 Order name: Magnesium EDMS 09/13 16:52 Order name: Magnesium EDMS 09/13 16:52 Order name: Magnesium EDMS 09/13 16:52 Order name: Magnesium EDMS 09/13 16:52 Order name: Phosphorus EDMS 09/13 16:52 Order name: Phosphorus EDCT 09/13 16:52 Order name: Phosphorus EDCT 09/13 16:52 Order name: Phosphorus [facility] 09/13 16:52 Order name: Thyroid Stimulating Hormone [facility] 09/13 16:52 Order name: Thyroid Stimulating Hormone [facility] 09/13 16:52 Order name: Urinalysis w/ reflexes EDCT 09/13 16:55 Order name: Hemoglobin A1c [facility] 09/13 16:55 Order name: Hemoglobin A1c [facility] 09/13 13:31 Order name: CT Head Brain wo Cont; Complete Time: 14:46 sb4 09/13 13:31 Order name: Chest Single View XRAY; Complete Time: 15:48 sb4 09/13 13:31 Order name: EKG; Complete Time: 13:32 sb4 09/13 16:52 Order name: CONS Physician Consult EDCT 09/13 13:31 Order name: Cardiac monitoring; Complete Time: 14:11 sb4 09/13 13:31 Order name: EKG - Nurse/Tech; Complete Time: 14:11 sb4 09/13 13:31 Order name: IV Saline Lock; Complete Time: 13:38 sb4 09/13 13:31 Order name: Labs collected and sent; Complete Time: 13:38 sb4 09/13 13:31 Order name: NPO; Complete Time: 13:38 sb4 09/13 13:31 Order name: O2 Per Protocol; Complete Time: 13:38 sb4 09/13 13:31 Order name: O2 Sat Monitoring; Complete Time: 13:38 sb4 09/13 13:31 Order name: Orthostatics; Complete Time: 14:11 sb4 09/13 15:19 Order name: Misc. Order: ambulate; Complete Time: 15:38 sb4 EC:58 Rate is 87 beats/min. Rhythm is regular, Normal Sinus Rhythm with Right bundle branch sb4 block. TX interval is normal at 182 msec. QRS interval is normal at 164 msec. QT interval is normal at 440 msec. No Q waves. T waves are Normal. No ST changes noted. Clinical impression: Normal ECG, No change from prior ECG, and No evidence of ischemia. Interpreted by me. Reviewed by me. Administered Medications: 14:16 Drug: NS 0.9% IV 1000 ml IV at 1 bolus Per protocol; 1000 mL bolus Route: IV; Rate: 1 me1 bolus; Site: right forearm; 15:41 Follow up: IV Status: Completed infusion; IV Intake: 1000ml me1 Disposition: 17:11 I was immediately available on-site in the Emergency Department for consultation in the ms3 care of the patient. Disposition Summary: 09/13/23 15:55 Hospitalization Ordered Notes: Hospitalization Status: Inpatient Admission sb4 Provider: Lanie Mullen sbSha [facility] sb[facility] Condition: Fair sb4 Problem: new sb4 Symptoms: are unchanged sb4 Bed/Room Type: Standard sb4 Room Assignment: 204(09/13/23 17:04) as6 Diagnosis - Chest pain, unspecified sb4 - Dizziness and giddiness sb4 Forms: - Medication Reconciliation Form sb4 - SBAR form sb4 - Leadership Thank You Letter sb4 Signatures: Dispatcher [employer] EDCT Hu Aldrich, DO ms3 Soham Hyde RN RN as6 Viridiana Foster, RN RN Yue Mauricio, PA-C PA-C sb4 Dari Boles, MAU RN me1 Corrections: (The following items were deleted from the chart) 13:48 13:32 PTT, ACTIVATED+COAG.LAB.BRZ ordered. [facility] EDCT 17:04 15:55 sb4 as6
[2023-09-13] MEDS ORDERED: NITROGLYCERIN 0.4 MG/TAB SL PRN (16:43)
[2023-09-13] MEDS ORDERED: ACETAMINOPHEN 500 MG TAB PO PRN (16:43)
[2023-09-13] MEDS ORDERED: ALBUTEROL 2.5 MG/3 ML NEB SOL NEB PRN (16:43)
--- NOTE | 2023-09-13 17:09 | P.HP ---
Certification for Inpatient Patient admitted to: Observation Patient will require the following post-hospital care: None Practitioner: I am a practitioner with admitting privileges, knowledge of patient current condition, hospital course, and medical plan of care. Services: Services provided to patient in accordance with Admission requirements found in Title 42 Section 412.3 of the Code of Federal Regulations <Messi Guerrero Last Filed: 09/13/23 17:10> Patient History Date of Service: 09/13/23 Reason for admission: Generalizd weakness and chest pain History of Present Illness: This is a 78-year-old male patient with a primary medical history of diabetes type 2 [id number], history of liver cancer to the ER via wheelchair with complaints of generalized weakness, dizziness and chest pain. Patient started having symptoms this morning after some work up stairs in his house. He started feeling dizzy, he went downstairs to tell his , who also stated that she was feeling the same symptoms. They thought it might have been gas leak so they opened the windows but the symptoms did not improved. Associated symptoms include chest pressure the middle of the chest. Patient noted to be unsteady on his feet. No aggravating or relieving factors. Patient denies chest pain or shortness of breath at this time . Patient's sister at bedside giving history. She reports the refused to come to the hospital. ED course Vital signs 172/70, pulse 88, respiration 18, temperature 98, pulse ox 93%, on room air. Weight 71.67 kg, height of 5 7. Pain 0/10. EKG normal sinus sinus rhythm with RBBB. Laboratory evaluation-CBC unremarkable, BMP showing elevated blood sugar 160. Initial magnesium is normal troponin is normal. Initial CT head is normal, chest x-ray is normal. Patient was given 1 L normal saline bolus in the emergency room. Admitting the patient with a diagnosis of generalized weakness dizziness and giddiness and chest pain. - Past Medical/Surgical History -: Liver Cancer -: Diabetis Melitus type 2 NIDDM -: Ear prblems- Tinnitus -: Liver tumor removal -: Liver biopsy Psychosocial/ Personal History: Patient lives with the spouse at home - Family History Father -: Cancer (colon cancer) - Social History Smoking Status: Never smoker Alcohol use: No CD- Drugs: No Place of Residence: Home <GuerreroMessi - Last Filed: 09/13/23 17:10> Date of Service: 09/13/23 <Lanie Mullen Dennis - Last Filed: 09/13/23 17:38> Allergies No Known Allergies Allergy (Unverified 09/13/23 16:59) Review of Systems 10-point ROS is otherwise unremarkable <Messi Guerrero - Last Filed: 09/13/23 17:10> Physical Examination - Physical Exam General: Oriented x3 HEENT: Atraumatic, Normocephalic, PERRLA Neck: Supple, 2+ carotid pulse no bruit Respiratory: Normal air movement Cardiovascular: No edema, Normal pulses, Normal S1 S2 Capillary refill: <2 Seconds Gastrointestinal: Normal bowel sounds, Soft and benign Musculoskeletal: No clubbing, No swelling Integumentary: No rashes, No breakdown, No significant lesion Neurological: Normal speech, Other (generalized shaking and involuntary gerking noted while examining) - Studies Laboratory Data (last 24 hrs) 09/13/23 09/13/23 09/13/23 13:36 13:36 13:36 WBC 4.30 Hgb 13.3 L Hct 39.9 Plt Count 129 L PT 11.9 INR 1.08 APTT Cancelled 31.4 Sodium Potassium BUN Creatinine Glucose Magnesium Total Bilirubin AST ALT Alkaline Phosphatase 09/13/23 13:36 WBC Hgb Hct Plt Count PT INR APTT Sodium 138 Potassium 3.5 BUN 19 H Creatinine 0.87 Glucose 160 H Magnesium 2.0 Total Bilirubin 0.6 AST 21 ALT 21 Alkaline Phosphatase 79 Microbiology Data (last 24 hrs): 09/13/23 14:18 Nasopharnyx Influenza Type A Antigen Screen - Final 09/13/23 14:18 Nasopharnyx Influenza Type B Antigen Screen - Final <Messi Guerrero - Last Filed: 09/13/23 17:10> - Studies Laboratory Data (last 24 hrs) 09/13/23 09/13/23 09/13/23 13:36 13:36 13:36 WBC 4.30 Hgb 13.3 L Hct 39.9 Plt Count 129 L PT 11.9 INR 1.08 APTT Cancelled 31.4 Sodium Potassium BUN Creatinine Glucose Magnesium Total Bilirubin AST ALT Alkaline Phosphatase 09/13/23 13:36 WBC Hgb Hct Plt Count PT INR APTT Sodium 138 Potassium 3.5 BUN 19 H Creatinine 0.87 Glucose 160 H Magnesium 2.0 Total Bilirubin 0.6 AST 21 ALT 21 Alkaline Phosphatase 79 Microbiology Data (last 24 hrs): 09/13/23 14:18 Nasopharnyx Influenza Type A Antigen Screen - Final 09/13/23 14:18 Nasopharnyx Influenza Type B Antigen Screen - Final <Lanie Mullen - Last Filed: 09/13/23 17:38> Assessment and Plan - Problems (Diagnosis) (1) Generalized weakness Current Visit: Yes Status: Acute (2) Dizziness and giddiness Current Visit: Yes Status: Acute (3) Chest pain Current Visit: Yes Status: Acute Qualifiers: Chest pain type: other chest pain Qualified Code(s): R07.89 - Other chest pain; R07.8 - Other chest pain (4) DM type 2 (diabetes mellitus, type 2) Current Visit: Yes Status: Chronic Qualifiers: Diabetes mellitus chcf insulin use: without watermaster use Diabetes mellitus complication status: without complication Qualified Code(s): E11.9 - Type 2 diabetes mellitus without complications - Plan Problems (Diagnosis) (1) Generalized weakness Current Visit: Yes Status: Acute (2) Dizziness and giddiness Current Visit: Yes Status: Acute (3) Chest pain Current Visit: Yes Status: Acute Qualifiers: Chest pain type: other chest pain Qualified Code(s): R07.89 - Other chest pain; R07.8 - Other chest pain (4) DM type 2 (diabetes mellitus, type 2) Current Visit: Yes Status: Chronic Qualifiers: Diabetes mellitus watermaster insulin use: without watermaster use Diabetes mellitus complication status: without complication Qualified Code(s): E11.9 - Type 2 diabetes mellitus without complications Chest Pain Generalized weakness Dizziness and giddiness Hypertension Type 2 diabetesand I DDM History of liver cancer * Patient was brought to the hospital due to generalized weakness, dizziness and mild chest pain like pressure in the middle of the chest this since this morning. * Based on history and physical examination, cannot exclude ischemia as a possible etiology of # Chest Pain, concern for Acute Coronary Syndrome (Non-ST Segment Elevation Myocardial Infarction) * - EKG: No obvious ST segment changes, trend * Initial troponin negative- Serial troponin * chest x-ray -normal * - Consult Cardiology - recommendations appreciated * - S/P aspirin 324 mg PO x 1 in ED * - Start daily baby aspirin * - Symptom control with PRN acetaminophen, nitroglycerin, morphine * Patient noted to have blood pressure fluctuating on the higher side started metoprolol tartrate 25 p.o. twice daily * Will continue to monitor the blood pressure closely * Patient has type 2 diabetes on metformin 500 mg p.o. daily as per the patient blood sugar has been controlled between 80-130 G DL * Will check A1c in the morning * Ordered lipid panel in the morning * Monitor and replete electrolytes monitor and replete electrolytes * Generalized weakness and dizzinessIV fluids started for hydration normal saline 100 mill per hour * History of liver cancer posterior tumor removal-not on any treatment at this time. CODE STATUS -full code Diet cardiac DVT prophylaxisLovenox - Advance Directives Does patient have a Living Will: No Does patient have a Durable POA for Healthcare: No <Messi Guerrero - Last Filed: 09/13/23 17:10> - Plan Pt seen and examined. I agree with the note by the SUPERVISOR [employer]. Pt is an 78 yo male with past medical history of liver cancer and diabetes who presents with dizziness a nd chest pain. Pt reports that he was working on [employer] in his house when he started feeling dizzy. He came down stairs and told his about his dizziness and his also reported feeling dizzy. They thought it could be due to gas leak and opened the windows in the house but the dizziness persisted and they came to the ER for evaluation. The chest pain is substernal, non-radiating and dull nature with severity of 8/10. Nothing makes it better or worse. On admission, lab studies show troponin 5.2. WBC 4.3, K 3.5, Cr 0.87. At bedside, pt is in NAD. A/P: Chest pain: Will r/o ACS. Troponin is 5.2. Will trend troponin q6h and keep NPO after midnight for Cardiology eval. No ST changes on EKG. Continue SERVANDO therapy. Dizziness: unknown etiology. Will check Orthostatic vital signs, Echo and carotid ultrasound. Htn: Continue metoprolol DM II: Continue accuchek, SSI and ADA diet. F/u A1c. Hypokalemia: K is 3.5. Joaquin replete and monitor DVT ppx: SCD Code: full. <Lanie Mullen - Last Filed: 09/13/23 17:38>
[2023-09-13] MEDS ORDERED: ASPIRIN 325 MG TAB PO ONE (17:15)
[2023-09-13] MEDS: NA CHLORIDE 0.9% 1,000 ML IV SCH (18:26)
[2023-09-13] MEDS: METOPROLOL TAR 25 MG TAB PO SCH (18:29)
[2023-09-13 18:53] VITALS: BMI 24.7
[2023-09-13] MEDS: INSULIN REGULAR (HUMAN) 100 UNIT/ML SQ SCH (20:10)
[2023-09-14] MEDS: NA CHLORIDE 0.9% 1,000 ML IV SCH ×3 (03:00→23:12)
[2023-09-14 04:25] LABS: Hematocrit 36.1 % (39.6-49.0); Lymphocytes % 24.4 % (15.3-44.8); MCV 80.1 fL (80-100); MPV 7.6 fL (7.6-11.3); Platelets 128 thou/uL (152-406); RBC Red Blood Cell Count 4.51 M/uL (4.33-5.43)
[2023-09-14 04:52] LABS: Magnesium 2.1 mg/dL (1.6-2.4); Phosphorus 2.5 mg/dL (2.5-4.9); Potassium 3.6 mEq/L (3.5-5.1); Thyroid Stimulating Hormone 1.01 uIU/mL (0.358-3.740)
[2023-09-14] MEDS: METOPROLOL TAR 25 MG TAB PO SCH ×2 (06:00→17:10)
[2023-09-14] MEDS: INSULIN REGULAR (HUMAN) 100 UNIT/ML SQ SCH ×4 (07:30→21:00)
[2023-09-14] MEDS ORDERED: POTASSIUM CL SA 10 MEQ TAB PO ONE (09:00)
[2023-09-14] MEDS: ENOXAPARIN 40 MG/0.4 ML SQ SCH (09:00)
[2023-09-14] MEDS: ASPIRIN EC 81 MG TAB PO SCH (09:17)
[2023-09-14] MEDS: POTASS/SODIUM PHOSPHATE 1 PKT POWD.PACK PO SCH ×5 (09:17→13:19)
--- NOTE | 2023-09-14 10:21 | P.PN ---
Subjective Date of Service: 09/14/23 Chief Complaint: Generalizd weakness and chest pain Subjective: No new changes, Improving, Doing well Patient is alert and oriented x 3 Resting in the bed, reports that he is still weak compared it is improving NAD Denies any pain or shortness of breath Vital stable <GuerreroSupa dorseyguillermo - Last Filed: 09/14/23 10:18> Date of Service: 09/14/23 <PazLanie Dennis - Last Filed: 09/14/23 18:01> Review of Systems 10-point ROS is otherwise unremarkable <Messi Guerrero - Last Filed: 09/14/23 10:18> Physical Examination - Vital Signs Temperature: 97.9 F Blood Pressure: 112/57 Pulse: 55 Respirations: 17 Pulse Ox (%): 95 - Physical Exam General: Alert HEENT: Atraumatic Neck: Supple Respiratory: Clear to auscultation bilaterally, Normal air movement Cardiovascular: No edema, Normal pulses Capillary refill: <2 Seconds Gastrointestinal: Normal bowel sounds, Soft and benign Musculoskeletal: No clubbing, No swelling, No contractures Integumentary: No rashes, No breakdown Neurological: Normal gait, Normal speech - Studies Laboratory Data (last 24 hrs) 09/13/23 09/13/23 09/13/23 13:36 13:36 13:36 WBC 4.30 Hgb 13.3 L Hct 39.9 Plt Count 129 L PT 11.9 INR 1.08 APTT Cancelled 31.4 Sodium Potassium BUN Creatinine Glucose Magnesium Total Bilirubin AST ALT Alkaline Phosphatase 09/13/23 13:36 WBC Hgb Hct Plt Count PT INR APTT Sodium 138 Potassium 3.5 BUN 19 H Creatinine 0.87 Glucose 160 H Magnesium 2.0 Total Bilirubin 0.6 AST 21 ALT 21 Alkaline Phosphatase 79 Microbiology Data (last 24 hrs): 09/13/23 14:18 Nasopharnyx Influenza Type A Antigen Screen - Final 09/13/23 14:18 Nasopharnyx Influenza Type B Antigen Screen - Final <Supa Guerreroguillermo - Last Filed: 09/14/23 10:18> - Studies Microbiology Data (last 24 hrs): 09/13/23 14:18 Nasopharnyx Influenza Type A Antigen Screen - Final 09/13/23 14:18 Nasopharnyx Influenza Type B Antigen Screen - Final <Lanie Mullen - Last Filed: 09/14/23 18:01> Assessment And Plan - Current Problems (Diagnosis) (1) Generalized weakness Current Visit: Yes Status: Acute (2) Dizziness and giddiness Current Visit: Yes Status: Acute (3) Chest pain Current Visit: Yes Status: Acute Qualifiers: Chest pain type: other chest pain Qualified Code(s): R07.89 - Other chest pain; R07.8 - Other chest pain (4) DM type 2 (diabetes mellitus, type 2) Current Visit: Yes Status: Chronic Qualifiers: Diabetes mellitus continuous churn buttermaker insulin use: without mcc use Diabetes mellitus complication status: without complication Qualified Code(s): E11.9 - Type 2 diabetes mellitus without complications - Plan Problems (Diagnosis) (1) Generalized weakness Current Visit: Yes Status: Acute (2) Dizziness and giddiness Current Visit: Yes Status: Acute (3) Chest pain Current Visit: Yes Status: Acute Qualifiers: Chest pain type: other chest pain Qualified Code(s): R07.89 - Other chest pain; R07.8 - Other chest pain (4) DM type 2 (diabetes mellitus, type 2) Current Visit: Yes Status: Chronic Qualifiers: Diabetes mellitus continuous churn buttermaker insulin use: without continuous churn buttermaker use Diabetes mellitus complication status: without complication Qualified Code(s): E11.9 - Type 2 diabetes mellitus without complications Chest Pain Generalized weakness Dizziness and giddiness Hypertension Type 2 diabetesand I DDM History of liver cancer * Patient was brought to the hospital due to generalized weakness, dizziness and mild chest pain like pressure in the middle of the chest this since this morning. * Based on history and physical examination, cannot exclude ischemia as a possible etiology of # Chest Pain, concern for Acute Coronary Syndrome (Non-ST Segment Elevation Myocardial Infarction) * - EKG: No obvious ST segment changes, trend * Initial troponin negative- Serial troponin * chest x-ray -normal * - Consult Cardiology - recommendations appreciated * - S/P aspirin 324 mg PO x 1 in ED * - Start daily baby aspirin * - Symptom control with PRN acetaminophen, nitroglycerin, morphine * Patient noted to have blood pressure fluctuating on the higher side started metoprolol tartrate 25 p.o. twice daily * Will continue to monitor the blood pressure closely * Patient has type 2 diabetes on metformin 500 mg p.o. daily as per the patient blood sugar has been controlled between 80-130 G DL * Will check A1c in the morning * Ordered lipid panel in the morning * Monitor and replete electrolytes monitor and replete electrolytes * Generalized weakness and dizzinessIV fluids started for hydration normal saline 100 mill per hour * History of liver cancer posterior tumor removal-not on any treatment at this time. CODE STATUS -full code Diet cardiac DVT prophylaxisLovenox Discharge Plan: Home Plan to discharge in: 24 Hours - Code Status/Comfort Care Code Status Assessed: Yes (full code) Code Status: Full Code Physician Review: Patient Assessed, Agree with Above Assessment and Plan Critical Care: No Time Spent Managing PTS Care (In Minutes): 35 (minutes) <Messi Guerrero - Last Filed: 09/14/23 10:18> - Plan Pt seen and examined. I agree with the note by the SPIKE MAKER. Waiting for cardiology eval. Troponin is negative. Monitor platelet count <Lanie Mullen - Last Filed: 09/14/23 18:01>
--- NOTE | 2023-09-14 12:01 | RAD REPORT ---
EXAM DESCRIPTION: US - CP - 09/14/2023 11:32 am CLINICAL HISTORY: dizziness Headache, drowsiness, dizziness COMPARISON: MRA Neck W/Wo Cont dated 02/12/2022 TECHNIQUE: Real-time sonographic evaluation of both carotid systems was performed. Doppler interroga tion was performed with waveform tracing bilaterally. FINDINGS: Normal high resistance waveforms are noted in both external carotid arteries. The common c arotid arteries and internal carotid arteries show normal low resistance waveforms. Long segment inti mal thickening and soft plaquing affects right distal common carotid artery without significant narro wing. There is mild hard plaquing seen right carotid bulb. Peak systolic and end diastolic velocity values and the ICA/CCA ratios are in the non-hemodynamically significant range. Antegrade flow seen in both vertebral arteries. IMPRESSION: Mild to moderate hard plaquing right carotid bulb results in stenosis estimated at 30-50 % based on NASCET criteria. No significant left-sided carotid stenosis.
--- NOTE | 2023-09-14 19:17 | CON ---
Date of Consultation: 09/14/2023 Reason For Consultation: Chest pain. History Of Present Illness: This is an 78-year-old male, no history of cardiac disease, has history of diabetes and hypertension for long time, presented with generalized fatigue and dizziness. He cla imed that when he stands up he feels like he is going to fall. He denies having chest pain, but said that he was holding his chest and he claimed that he had 1 episode in the last few minutes wher e he had some sharp chest pain, but it resolved and never came back. Past Medical History: As outlined above in the HPI. Medications: Refer reconciliation sheet for detailed list. Allergies: NO KNOWN DRUG ALLERGIES. Family History: No premature coronary artery disease or cancer. Social History: Does not smoke or drink. Does not use any drugs. Review of Systems: All systems reviewed and they were negative except as mentioned in the HPI. Physical Examination: Vital Signs: Reviewed. Head and Neck: Pupils are equal, reactive to light. Intact eye movements. No JVD. No cervical lym phadenopathy. Neck is supple. Thyroid is not enlarged. Lungs: Clear to auscultation bilaterally. No rhonchi, rales, or crackles. No accessory muscle use. Heart: Regular rate and rhythm. No extra sounds. Abdomen: Soft, nontender. Bowel sounds positive. No organomegaly. No masses or hernia. No rigidi ty or rebound. Extremities: No edema, clubbing, cyanosis. Intact pulses. Skin: No rashes. Neurologic: Alert, awake, oriented x3. No acute focal deficits appreciated. Lymph Nodes: No cervical or axillary lymphadenopathy. Investigations: Cardiac enzymes are negative. BUN 19, creatinine 0.86. Hemoglobin is 12.3. Assessment/recommendation: 1.Chest pain, atypical. Cardiac enzymes are negative. Due to diabetes and age, needs further evalu ation. Recommend outpatient stress test versus coronary angiogram. He does have established care at the [facility]. Would like to follow up there and I asked him to make an appointment as soon as he gets dis charged and we will be happy to see him here locally if he chooses to do so. 2.Hypertension. Blood pressure is controlled. SR/MODL Voice ID: [id number] Report ID: [id number]
[2023-09-14 23:56] VITALS: O2SAT 96
[2023-09-15 03:13] LABS: Absolute Lymphocytes (CBC) 1.1 K/uL (0.7-4.9); Lymphocytes % 30.5 % (15.3-44.8); MCV 80.8 fL (80-100); MPV 7.6 fL (7.6-11.3); Platelets 106 thou/uL (152-406)
[2023-09-15 03:32] LABS: Magnesium 2.1 mg/dL (1.6-2.4); Phosphorus 2.1 mg/dL (2.5-4.9)
[2023-09-15] MEDS: METOPROLOL TAR 25 MG TAB PO SCH (05:03)
[2023-09-15] MEDS: POTASS/SODIUM PHOSPHATE 1 PKT POWD.PACK PO SCH ×3 (05:03→08:10)
[2023-09-15] MEDS: INSULIN REGULAR (HUMAN) 100 UNIT/ML SQ SCH (07:30)
[2023-09-15] MEDS: ASPIRIN EC 81 MG TAB PO SCH (08:10)
[2023-09-15] MEDS: ENOXAPARIN 40 MG/0.4 ML SQ SCH (08:10)
[2023-09-15 09:11] VITALS: BP 117/56; TEMP 98.6
--- NOTE | 2023-09-15 10:11 | P.DS ---
Admission Date: 09/13/23 Discharge Date: 09/15/23 Reason for Admission: Generalizd weakness and chest pain - Problems (1) Generalized weakness Status: Acute (2) Dizziness and giddiness Status: Acute (3) Chest pain Status: Acute Qualifiers: Chest pain type: other chest pain Qualified Code(s): R07.89 - Other chest pain; R07.8 - Other chest pain (4) DM type 2 (diabetes mellitus, type 2) Status: Chronic Qualifiers: Diabetes mellitus extermination inspector insulin use: without extermination inspector use Diabetes mellitus complication status: without complication Qualified Code(s): E11.9 - Type 2 diabetes mellitus without complications Brief History of Present Illness: This is a 78-year-old male patient with a primary medical history of diabetes type 2 [id number]-[id number], history of liver cancer to the ER via wheelchair with complaints of generalized weakness, dizziness and chest pain. Patient started having symptoms this morning after some work up stairs in his house. He started feeling dizzy, he went downstairs to tell his , who also stated that she was feeling the same symptoms. They thought it might have been gas leak so they opened the windows but the symptoms did not improved. Associated symptoms include chest pressure the middle of the chest. Patient noted to be unsteady on his feet. No aggravating or relieving factors. Patient denies chest pain or shortness of breath at this time . Patient's sister at bedside giving history. She reports the refused to come to the hospital. ED course Vital signs 172/70, pulse 88, respiration 18, temperature 98, pulse ox 93%, on room air. Weight 71.67 kg, height of 5 7. Pain 0/10. EKG normal sinus sinus rhythm with RBBB. Laboratory evaluation-CBC unremarkable, BMP showing elevated blood sugar 160. Initial magnesium is normal troponin is normal. Initial CT head is normal, chest x-ray is normal. Patient was given 1 L normal saline bolus in the emergency room. Admitting the patient with a diagnosis of generalized weakness dizziness and giddiness and chest pain. <Messi Guerrero - Last Filed: 09/15/23 10:10> Admission Date: 09/13/23 Discharge Date: 09/15/23 Hospital Course: Pt is an 78yo male with past medical history of diabetes type 2 gto-pqmboiy-sfmvsmoqy and liver cancer who presented with generalized weakness, dizziness and chest pain. Pt started having the symptoms after some work up stairs in his house. He started feeling dizzy, he went downstairs to tell his , who also stated that she was feeling the same symptoms. They thought it might have been gas leak so they opened the windows but the symptoms did not improved. It was associated with substernal chest pressure. Patient noticed that he was unsteady on his feet. On admission, troponin was negative. Cardiology evaluated pt and recommended outpt follow up for NM stress test. The symptoms resolved and pt was discharged. We continued homem meds for ther chronic medical problems. Pt was in NAD prior to discharge. <PazParvinangy Collins - Last Filed: 09/15/23 21:05> Disposition: ROUTINE DISCHARGE Discharge Condition: GOOD Vital Signs/Physical Exam: Temp Pulse Resp BP Pulse Ox 98.6 F 56 17 117/56 L 94 09/15/23 08:00 09/15/23 08:00 09/15/23 08:00 09/15/23 08:00 09/15/23 08:00 General: Alert, Oriented x3 HEENT: Atraumatic, Normocephalic Neck: Supple, 2+ carotid pulse no bruit Respiratory: Clear to auscultation bilaterally, Normal air movement Cardiovascular: No edema, Normal pulses Capillary refill: <2 Seconds Gastrointestinal: Normal bowel sounds, Soft and benign Musculoskeletal: No clubbing, No contractures Integumentary: No rashes, No breakdown Neurological: Normal speech, Normal tone, Normal affect Laboratory Data at Discharge: WBC 3.60 thou/uL (4.3-10.9) L 09/15/23 02:33 Hgb 12.9 g/dL (13.6-17.9) L 09/15/23 02:33 Hct 38.0 % (39.6-49.0) L 09/15/23 02:33 Plt Count 106 thou/uL (152-406) L 09/15/23 02:33 PT 11.9 SECONDS (9.5-12.5) 09/13/23 13:36 INR 1.08 09/13/23 13:36 APTT 31.4 SECONDS (24.3-36.9) 09/13/23 13:36 APTT Cancelled 09/13/23 13:36 Sodium 139 mEq/L (136-145) 09/15/23 02:33 Potassium 4.0 mEq/L (3.5-5.1) 09/15/23 02:33 BUN 21 mg/dL (7-18) H 09/15/23 02:33 Creatinine 1.18 mg/dL (0.70-1.30) 09/15/23 02:33 Glucose 133 mg/dL (74-106) H 09/15/23 02:33 Phosphorus 2.1 mg/dL (2.5-4.9) L 09/15/23 02:33 Magnesium 2.1 mg/dL (1.6-2.4) 09/15/23 02:33 Total Bilirubin 0.6 mg/dL (0.2-1.0) 09/13/23 13:36 AST 21 U/L (15-37) 09/13/23 13:36 ALT 21 U/L (16-61) 09/13/23 13:36 Alkaline Phosphatase 79 U/L (45-117) 09/13/23 13:36 Triglycerides 148 mg/dL (<150) 09/14/23 03:41 Cholesterol 174 mg/dL (<200) 09/14/23 03:41 HDL Cholesterol 43 mg/dL (40-60) 09/14/23 03:41 Cholesterol/HDL Ratio 4.05 09/14/23 03:41 <Messi Guerrero - Last Filed: 09/15/23 10:10> Vital Signs/Physical Exam: Temp Pulse Resp BP Pulse Ox 98.6 F 56 17 117/56 L 94 09/15/23 08:00 09/15/23 08:00 09/15/23 08:00 09/15/23 08:00 09/15/23 08:00 Laboratory Data at Discharge: WBC 3.60 thou/uL (4.3-10.9) L 09/15/23 02:33 Hgb 12.9 g/dL (13.6-17.9) L 09/15/23 02:33 Hct 38.0 % (39.6-49.0) L 09/15/23 02:33 Plt Count 106 thou/uL (152-406) L 09/15/23 02:33 PT 11.9 SECONDS (9.5-12.5) 09/13/23 13:36 INR 1.08 09/13/23 13:36 APTT 31.4 SECONDS (24.3-36.9) 09/13/23 13:36 APTT Cancelled 09/13/23 13:36 Sodium 139 mEq/L (136-145) 09/15/23 02:33 Potassium 4.0 mEq/L (3.5-5.1) 09/15/23 02:33 BUN 21 mg/dL (7-18) H 09/15/23 02:33 Creatinine 1.18 mg/dL (0.70-1.30) 09/15/23 02:33 Glucose 133 mg/dL (74-106) H 09/15/23 02:33 Phosphorus 2.1 mg/dL (2.5-4.9) L 09/15/23 02:33 Magnesium 2.1 mg/dL (1.6-2.4) 09/15/23 02:33 Total Bilirubin 0.6 mg/dL (0.2-1.0) 09/13/23 13:36 AST 21 U/L (15-37) 09/13/23 13:36 ALT 21 U/L (16-61) 09/13/23 13:36 Alkaline Phosphatase 79 U/L (45-117) 09/13/23 13:36 Triglycerides 148 mg/dL (<150) 09/14/23 03:41 Cholesterol 174 mg/dL (<200) 09/14/23 03:41 HDL Cholesterol 43 mg/dL (40-60) 09/14/23 03:41 Cholesterol/HDL Ratio 4.05 09/14/23 03:41 <Lanie Mullen - Last Filed: 09/15/23 21:05> Diet: ADA Activity: Ad ethel Time spent managing pt's care (in minutes): 55 (minutes) <Messi Guerrero - Last Filed: 09/15/23 10:10> <Lanie Mullen - Last Filed: 09/15/23 21:05> Home Medications: Metformin HCl [Glucophage*] 500 mg PO BID 09/14/23 Metoprolol Tartrate 25 mg PO BID 90 Days #180 tab 02/03/24 Metoprolol Tartrate [Lopressor*] 25 mg PO BID 6AM 6PM 90 Days tab 09/15/23 New Medications: Metoprolol Tartrate [Lopressor*] 25 mg PO BID 6AM 6PM 90 Days tab Metoprolol Tartrate 25 mg PO BID 90 Days #180 tab Physician Discharge Instructions: PROBLEM: (list out Acute Problems for the Current visit) GOAL: Clear understanding of disease process INSTRUCTIONS: Diet: ADA Activity: As tolerated Date Given: Mr. Stiles is a pleasant 78-year-old male patient with a past medical history significant for type 2 diabetes, history of liver cancer who was [facility] on 09/13/2023 for generalized weakness, dizziness and chest pain. Patient was admitted in the hospital started IV hydration, consulted senior business process analyst. On 09/15/2023, patient was seen on morning rounds and deemed medically stable for discharge. Patient was discharged with instructions to schedule follow-up appointments with PCP in 1 week and senior business process analyst in 2 weeks. Patient was provided prescriptions for metoprolol 25 mg p.o. twice daily. The patient and family members were given the opportunity to ask questions and reported no further questions. 1. Please call and schedule a follow-up appointment with your PCP ( [text]) in 1 week 2. Please call and schedule a follow-up appointment with senior business process analyst in 2 weeks - Please follow-up with your PCP for medication refills/adjustments . Please call and schedule a follow-up appointment with your PCP ( [text]) in 3-5 days 2. Please call and schedule a follow-up appointment with ton cylinder inspector in 1 week. - Please follow-up with your PCP for medication refills/adjustments [facility]: [facility] [Primary Care Provider] - Charles Salter MD [ACTIVE - CAN ADMIT] -
--- NOTE | 2023-09-17 06:50 | ECHO ---
HEIGHT: 5 ft 7 in WEIGHT: 158 lb 0.085 oz DATE OF STUDY: 09/14/[address]: Lanie Mullen MD 2-DIMENSIONAL: YES M.MODE: YES DOPPLER: YES COLOR FLOW: YES TDS: PORTABLE: YES DEFINITY: BUBBLE STUDY: DIAGNOSIS: DIZZINESS CARDIAC HISTORY: CATHERIZATION: SURGERY: PROSTHETIC VALVE: PACEMAKER: MEASUREMENTS (cm) DIASTOLIC (NORMALS) SYSTOLIC (NORMALS) IVSd 1.0 (0.6-1.2) LA Diam 4.0 (1.9-4.0) LVEF 74% LVIDd 4.6 (3.5-5.7) LVIDs 2.6 (2.0-3.5) %FS 43% LVPWd 1.0 (0.6-1.2) Ao Diam 3.1 (2.0-3.7) 2 DIMENSIONAL ASSESSMENT: RIGHT ATRIUM: NORMAL LEFT ATRIUM: ENLARGED RIGHT VENTRICLE: NORMAL LEFT VENTRICLE: NORMAL TRICUSPID VALVE: MILD TRICUSPID REGURGITATION MITRAL VALVE: MILD MITRAL REGURGITATION PULMONIC VALVE: MILD PULMONIC INUSFFICIENCY AORTIC VALVE: MILD AORTIC INSUFFICIENCY PERICARDIAL EFFUSION: AORTIC ROOT: NORMAL LEFT VENTRICULAR WALL MOTION: NORMAL WALL MOTION. NORMAL LEFT VENTRICULAR FUNCTION. EJECTION FRACTION 60-65%. GRADE I DIASTOLIC DYSFUNCTION. DOPPLER/COLOR FLOW: COMMENTS: 1. NORMAL LEFT VENTRICULAR SYSTOLIC FUNCTION WITH EJECTION FRACTION 60-65%, NORMAL WALL MOTION 2. GRADE I DIASTOLIC DYSFUNCTION 3. MILD TRICUSPID REGURGITATION, MILD PULMONARY HYPERTENSION (RIGHT VENTRICULAR SYSTOLIC PRESSURE 30 mmHg) 4. MILD AORTIC INSUFFICIENCY, MILD PULMONIC INSUFFICIENCY TECHNOLOGIST: GILBERTO AMBROSE
--- NOTE | 2023-09-17 15:13 | EKG ---
Test Date: 2023-09-13 Test Time: 13:52:30 Garbage Truck Driver: SWATHI MEASUREMENT RESULTS: Intervals: Rate: 87 MS: 182 QRSD: 164 QT: 440 QTc: 529 [place]: P: 42 MS: 182 QRS: 249 T: 23 INTERPRETIVE STATEMENTS: Normal sinus rhythm Right bundle branch block Abnormal ECG Compared to ECG 02/12/2022 10:37:51 No significant changes Electronically Signed On 09-17-23 15:03:24 CLOTH SHRINKING TESTER by Charles Salter
== END 2023-09-15 11:35 | disposition home or self-care (01) | DRG 948 ==
LOC: ER 13:08 → 2ND 16:41
PROVIDERS: ADMIT Hospitalist; ATTEND Hospitalist
DX: R53.1 Weakness (principal); E11.9 Type 2 diabetes mellitus without complications; I10 Essential (primary) hypertension; E87.6 Hypokalemia; I45.10 Unspecified right bundle-branch block; R07.89 Other chest pain; R42 Dizziness and giddiness; Z11.52 Encounter for screening for COVID-19; Z85.05 Personal history of malignant neoplasm of liver
CPT/HCPCS: 36415; 70450; 71045; 80048; 80061; 80076; 81003; 82550; 82947; 83036; 83735; 83880; 84100; 84439; 84443; 84484; 85025; 85610; 85730; 87804; 87811; 93005; 93306; 93880; J1650; J7030

== ENCOUNTER 2025-03-27 05:25 | Emergency (ER) | payer OTHER ==
[2025-03-27 05:44] LABS: Absolute Lymphocytes (CBC) 2.1 K/uL (0.7-4.9); Hematocrit 46.9 % (39.6-49.0); Hemoglobin 16.0 g/dL (13.6-17.9); MCH 28.1 pg (27.0-35.0); MCHC 34.1 g/dL (32.0-36.0); MCV 82.4 fL (80-100); MPV 8.0 fL (7.6-11.3); Nucleated RBC Absolute Count 0.0 (0-0); Nucleated Red Blood Cells % 0.1 % (0-0); RBC Red Blood Cell Count 5.70 M/uL (4.33-5.43); White Blood Count 5.20 thou/uL (4.3-10.9)
[2025-03-27] MEDS ORDERED: TENECTEPLASE 50 MG/10 ML VIAL IV ONE (05:46)
[2025-03-27] MEDS ORDERED: LABETALOL 20 MG/4ML SYRINGE IV ONE (05:46)
[2025-03-27 05:53] LABS: PT Prothrombin Time 10.9 SECONDS (10-13.0); PTT, Activated Partial Thromb 31.1 SECONDS (27.2-37.4); Protime INR 0.96
[2025-03-27 06:03] LABS: Anion Gap 9.0 mEq/L (5.0-15.0); BUN Blood Urea Nitrogen 20.0 mg/dL (7-18); Glucose Level 239.0 mg/dL (74-106); Potassium 4.0 mEq/L (3.5-5.1); Troponin High Sensitivity 4.3 pg/mL (<58.9)
--- NOTE | 2025-03-27 06:16 | RAD REPORT ---
EXAM: CT head without IV contrast CLINICAL DATA: 80 years Male STROKE ALERT TECHNICAL DATA: Multiple axial CT images of the brain were performed followed by sagittal and coronal reconstructed i mages. The CT study is performed according to ALARA (as low as reasonably achievable) or ALARA/IMAGE GENTLY, with automatic adjustment of mA and/or kV according to patient size. Performed on: 03/27/2025 at 5:53 AM Comparisons: Head CT report from 09/13/2023 and brain MRI report from 02/12/2022. The images were unava ilable for review. FINDINGS: Limitations: There is some motion artifact on the images resulting in degradation of image quality. Brain: There is no evidence of mass, acute mass effect or midline shift. There are no acute extra-axi al fluid collections. There is no evidence of acute intracranial hemorrhage. The cerebral sulci and ventricles are prominent consistent with age-related volume loss. There may be very mild perive ntricular low-attenuation which can be seen with chronic microangiopathy. There is no evidence of a hyperdense MCA. Paranasal Sinuses and Mastoids: There is no significant mucosal thickening of the paranasal sinuses. There are postsurgical changes of the right mastoid cavity. The left mastoid air cells are clear. Orbits: The orbital contents are grossly unremarkable. Bones: No acute osseous abnormalities are identified. Soft Tissues: No focal soft tissue abnormalities are identified. IMPRESSION: 1. There is no evidence of acute intracranial pathology. 2. Mild age-related cerebral volume loss with findings suggesting very mild chronic microangiopathy . 3. Postsurgical changes of the right mastoid cavity. 4. There is some motion artifact on the images resulting in degradation of image quality. Electronically signed by: Sandra Ryan DO 03/27/2025 06:12 AM CDT Due to temporary technical issues with the [employer]ACS[employer] reporting system, reports are being mj d by the in-house radiologist without review as a courtesy to ensure prompt reporting the interpreting radiologist is fully responsible for the content of the report. Transcribed Date/Time: 03/27/2025 6:15 AM
[2025-03-27] MEDS ORDERED: Nicardipine/NS 25 MG/250 ML KIT IV ONE (06:21)
--- NOTE | 2025-03-27 06:27 | ER ---
Nurse's Notes [facility] Name: Barron Stiles Age: 80 yrs Sex: Male : 1945 Arrival Date: 03/27/2025 Time: 05:25 Bed 3 Private MD: Diagnosis: Cerebral infarction, unspecified;Diplopia;Ataxia, unspecified Presentation: 03/27 05:36 Chief complaint: Patient states: PT STATES HE WAS DOING PAPERWORK APPROX 2 HOURS AGO br2 AND STOOD UP FEELING WEAK, UNABLE TO FOCUS, DOUBLE VISION, SOB AND SHAKING ALL OVER. DENIES CP. Coronavirus screen: Client denies travel out of the [place] in the last 14 days. Ebola Screen: Patient negative for fever greater than or equal to 101.5 degrees Fahrenheit, and additional compatible Ebola Virus Disease symptoms. Initial Sepsis Screen: Does the patient meet any 2 criteria? RR > 20 per min. HR > 90 bpm. Does the patient have a suspected source of infection? No. Patient's initial sepsis screen is negative. Risk Assessment: Do you want to hurt yourself or someone else? Patient reports no desire to harm self or others. Onset of symptoms was March 27, 2025 at 03:30. 05:36 Method Of Arrival: Ambulatory br2 05:36 Acuity: KRISTINA 2 br2 Triage Assessment: 05:36 EENT: No signs and/or symptoms were reported regarding the EENT system. Neuro: Oriented br2 to person, time, situation. Neuro: Gait is unsteady. Cardiovascular: Denies chest pain. 05:36 GI: No signs and/or symptoms were reported involving the gastrointestinal system. : br2 No signs and/or symptoms were reported regarding the genitourinary system. Derm: No signs and/or symptoms reported regarding the dermatologic system. Musculoskeletal: Denies weakness in chest, right arm, left arm, right leg and left leg. 05:40 General: Appears uncomfortable, Behavior is cooperative, anxious. Pain: Denies pain. br2 Neuro: Level of Consciousness is awake, alert, obeys commands, confused, Oriented to. Respiratory: Reports shortness of breath at rest on exertion Onset: The symptoms/episode began/occurred suddenly, the patient has moderate shortness of breath. Historical: - Allergies: 05:40 No Known Allergies; br2 - PMHx: 05:40 diabetes mellitus; Liver CA; br2 - PSHx: 05:40 Liver Cancer Surgery; liver tumor removed; br2 - Immunization history:: Adult Immunizations up to date. - Infectious Disease History:: Denies. - Family history:: not pertinent. - Social history:: Smoking status: Patient/guardian denies using tobacco, Patient/guardian denies using alcohol, street drugs. - Hospitalizations: : No recent hospitalization is reported. Screenin:39 [facility] ED Fall Risk Assessment (Adult) History of falling in the last 3 months, br2 including since admission No falls in past 3 months (0 pts) Confusion or Disorientation Yes (5 pts) Intoxicated or Sedated No (0 pts) Impaired Gait Yes (1 pt) Mobility Assist Device Used No (0 pt) Altered Elimination No (0 pt) Score/Fall Risk Level 3 or more points = High Risk Oriented to surroundings, Maintained a safe environment. Abuse screen: Denies threats or abuse. Denies injuries from another. Nutritional screening: No deficits noted. Tuberculosis screening: No symptoms or risk factors identified. 06:12 [place] Swallow Protocol Exclusion Criteria: Unable to remain alert for testing: No NPO vc1 for medical/surgical reason by provider order No Head-of-bed restricted <30 degrees Tracheostomy tube present No No thin liquids due to preexisting dysphagia/baseline modified diet thickened liquids No Exclusion Criteria Result: Proceed Brief Cognitive Screen What is your name? Normal, Where are you right now? Normal, What year is it? Normal. Oral Mechanism Examination Facial Symmetry: Normal, Motion: Normal, Lip Closure: Normal, 3 oz Water Swallow Challenge: Pt able to drink all water without stopping, coughing, choking or throat clearing: No Result: FAIL MD Notified: Messi Victoria MD. Assessment: 05:28 General: Appears in no apparent distress. uncomfortable, Behavior is calm, cooperative, vc1 appropriate for age. Pain: Denies pain. Neuro: Level of Consciousness is awake, alert, obeys commands, Oriented to person, place, time, situation, Appropriate for age. Cardiovascular: Capillary refill Rhythm is regular. Respiratory: Reports shortness of breath at rest Airway is patent Respiratory effort is even, unlabored, Respiratory pattern is regular, symmetrical, Breath sounds are clear. GI: No deficits noted. No signs and/or symptoms were reported involving the gastrointestinal system. : No deficits noted. EENT: No deficits noted. No signs and/or symptoms were reported regarding the EENT system. Derm: Skin is intact, is healthy with good turgor, Skin is dry, Skin is normal, Skin temperature is warm. Musculoskeletal: Reports unable to stand, falling over. 05:28 Neuro: Reports diplopia, weakness. vc1 07:00 General: Appears uncomfortable, Behavior is calm, cooperative, Reports shaking, pt aa5 shaking uncontrollably to whole body. Pain: Denies pain. Neuro: Level of Consciousness is awake, alert, obeys commands, Oriented to person, place, time, situation, Manager Primary Care are equal bilaterally Moves all extremities. Speech is normal, Facial symmetry appears normal, Pupils are PERRLA, Reports diplopia, Denies dizziness, difficulty swallowing, paresthesias numbness headache. Cardiovascular: Heart tones S1 S2 present Rhythm is regular. Respiratory: Reports shortness of breath Airway is patent Respiratory effort is even, unlabored, Respiratory pattern is regular, symmetrical, Breath sounds are clear bilaterally. GI: No signs and/or symptoms were reported involving the gastrointestinal system. : No signs and/or symptoms were reported regarding the genitourinary system. EENT: No signs and/or symptoms were reported regarding the EENT system. Derm: Skin is pink, warm \T\ dry. Musculoskeletal: Range of motion: intact in all extremities. 07:36 Reassessment: Report to MAU Blum at [facility], pt left ER. bm8 Vital Signs: 05:36 BP 204 / 90; Pulse 96; Resp 24; Temp 97.2; Pulse Ox 94% on 2 lpm NC; Weight 74.84 kg; br2 Height 5 ft. 5 in. ; Pain 0/10; 06:23 BP 178 / 86; rn 06:33 BP 165 / 73; rn 06:51 vc1 07:00 aa5 05:36 Body Mass Index 27.46 (74.84 kg, 165.1 cm) br2 05:36 Pain Scale: Adult br2 06:51 See stroke paperwork for vital signs vc1 07:00 See paperchart for complete VS and NIHSS scores. aa5 NIH Stroke Scale Scores: 05:39 NIHSS Score: 2 vc1 05:39 NIHSS Score: 2 rn 07:00 NIHSS Score: 2 aa5 ED Course: 05:27 Patient arrived in ED. [email or web address] 05:28 Messi Victoria MD is Attending Physician. rn 05:36 Arm band placed on right wrist. br2 05:39 Patient has correct armband on for positive identification. Placed in gown. Bed in low br2 position. Call light in reach. Side rails up X 1. Provided Education on: PLAN OF CARE. 05:39 Inserted saline lock: 20 gauge in left antecubital area, using aseptic technique. Blood br2 collected. Flushed with 10 mL NS. 05:39 Inserted saline lock: 20 gauge in right forearm, using aseptic technique. Flushed with br2 10 mL NS. 05:40 Triage completed. br2 05:53 CT Head Angio In Process Unspecified. EDMS 05:53 CT Neck Angio In Process Unspecified. EDMS 05:53 CT Stroke Brain w/o Contrast In Process Unspecified. EDMS 05:57 Carlee Lobo, RN is Primary Nurse. vc1 06:07 Stroke CXR 1 View In Process Unspecified. EDMS 06:27 initiated a transfer with Rodrigue from the [facility]. eb 06:42 connected the neuro pediatric occupational therapist supervisor functional testing for [facility] with Dr. Victoria for patient eb transfer consultation. 06:42 administrative approval given by Nigel Quiroz/ patient has been accepted to [facility] 7 south 4 bed 10/ Dr. Francy Early has accepted the patient in transfer/ report to be called to [phone]. 07:30 No provider procedures requiring assistance completed. Patient transferred, IV remains aa5 in place. Administered Medications: 05:55 Drug: Labetalol IV 5 mg IV at calculated rate once Route: IV; Rate: calculated rate; vc1 Site: left antecubital; 06:11 Drug: Labetalol IV 5 mg IV at calculated rate once; not a repeat, is for 2nd labetalol vc1 given prior to TNK Route: IV; Rate: calculated rate; Site: left antecubital; 06:28 Drug: TNK FOR STROKE - Tenecteplase IV (Administer 10 ml NS flush BEFORE and vc1 AFTER tenecteplase) 0.25 mg/kg IV at per protocol once; 0.25mg/kg, MAX DOSE 25 mg, IVP over 5 seconds {Co-Signature: bm8 (Cirilo Morales RN).} Route: IV; Rate: per protocol; Site: left antecubital; 06:30 Drug: niCARdipine IV 2.5 mg/hr IV at calculated rate See Administration Instructions; vc1 (Standard concentration 25 mg / 250 mL NS); Recommended max rate 15 mg/hr; Titrate 2.5 mg/hr as often as every 15 minutes to achieve goal (see titration policy); Goal parameter SBP less than 160 mmHg Route: IV; Rate: calculated rate; Site: left antecubital; Medication: 06:33 VIS not applicable for this client. vc1 Point of Care Testing: Blood Glucose: 05:36 Blood Glucose: 228 mg/dL; br2 Ranges: Outcome: 06:27 ER care complete, transfer ordered by . rn 07:30 Transferred by ground EMS to [facility], Transfer form completed. aa5 X-rays sent w/ patient. Note: Report given to [facility] 07:30 Condition: stable 07:30 Instructed on the need for transfer, Demonstrated understanding of instructions, 07:34 Patient left the ED. aa5 NIH Stroke Scale - NIH Stroke Score Date: 03/27/2025 Time: 05:39 Total Score = 2 10. Dysarthria (speech clarity - read or repeat words) - 0(Normal) 11. Extinction and Inattention (visual/tactile/auditory/spatial/personal) - 0(No abnormality) 1a. Level of Consciousness (LOC) - 0(Alert) 1b. Level of Consciousness (LOC) (Month \T\ Age) - 0(Both) 1c. LOC Commands (Open \T\ Closes Eyes/Service Order Dispatcher) - 0(Both) 2. Best Gaze (Lateral Gaze Paresis) - 0(Normal) 3. Visual Field Loss - 0(No visual loss) 4. Facial Palsy - 0(Normal) 5a. Left Arm: Motor (10-second hold) - 0(No drift) 5b. Right Arm: Motor (10-second hold) - 0(No drift) 6a. Left Leg: Motor (5-second hold - always test supine) - 0(No drift) 6b. Right Leg: Motor (5-second hold - always test supine) - 0(No drift) 7. Limb Ataxia (finger/nose \T\ heel/melchor - test with eyes open) - 2(Present in two limbs) 8. Sensory Loss (pinprick arms/legs/face) - 0(Normal) 9. Best Language: Aphasia (description/naming/reading) - 0(No aphasia) Initials: vc1 NIH Stroke Scale - NIH Stroke Score Date: 03/27/2025 Time: 05:39 Total Score = 2 10. Dysarthria (speech clarity - read or repeat words) - 0(Normal) 11. Extinction and Inattention (visual/tactile/auditory/spatial/personal) - 0(No abnormality) 1a. Level of Consciousness (LOC) - 0(Alert) 1b. Level of Consciousness (LOC) (Month \T\ Age) - 0(Both) 1c. LOC Commands (Open \T\ Closes Eyes/Service Order Dispatcher) - 0(Both) 2. Best Gaze (Lateral Gaze Paresis) - 0(Normal) 3. Visual Field Loss - 0(No visual loss) 4. Facial Palsy - 0(Normal) 5a. Left Arm: Motor (10-second hold) - 0(No drift) 5b. Right Arm: Motor (10-second hold) - 0(No drift) 6a. Left Leg: Motor (5-second hold - always test supine) - 0(No drift) 6b. Right Leg: Motor (5-second hold - always test supine) - 0(No drift) 7. Limb Ataxia (finger/nose \T\ heel/melchor - test with eyes open) - 2(Present in two limbs) 8. Sensory Loss (pinprick arms/legs/face) - 0(Normal) 9. Best Language: Aphasia (description/naming/reading) - 0(No aphasia) Initials: rn NIH Stroke Scale - NIH Stroke Score Date: 03/27/2025 Time: 07:00 Total Score = 2 10. Dysarthria (speech clarity - read or repeat words) - 0(Normal) 11. Extinction and Inattention (visual/tactile/auditory/spatial/personal) - 0(No abnormality) 1a. Level of Consciousness (LOC) - 0(Alert) 1b. Level of Consciousness (LOC) (Month \T\ Age) - 0(Both) 1c. LOC Commands (Open \T\ Closes Eyes/Service Order Dispatcher) - 0(Both) 2. Best Gaze (Lateral Gaze Paresis) - 0(Normal) 3. Visual Field Loss - 0(No visual loss) 4. Facial Palsy - 0(Normal) 5a. Left Arm: Motor (10-second hold) - 0(No drift) 5b. Right Arm: Motor (10-second hold) - 0(No drift) 6a. Left Leg: Motor (5-second hold - always test supine) - 0(No drift) 6b. Right Leg: Motor (5-second hold - always test supine) - 0(No drift) 7. Limb Ataxia (finger/nose \T\ heel/melchor - test with eyes open) - 2(Present in two limbs) 8. Sensory Loss (pinprick arms/legs/face) - 0(Normal) 9. Best Language: Aphasia (description/naming/reading) - 0(No aphasia) Initials: aa5 Signatures: Dispatcher [employer] EDMessi Fernandez MD MD rn Saravanan, Vy RN RN aa5 Dorcas Dickey Jennifer jj6 Carlee Lobo RN RN vc1 Cirilo Morales, MAU RN bm8 Leti Lugo RN RN br2 Cirilo Morales RN bm8 Corrections: (The following items were deleted from the chart) 05:58 05:57 Labetalol IV 5 mg IV at calculated rate in left antecubital vc1 vc1
--- NOTE | 2025-03-27 06:27 | EDPHYS ---
Physician Documentation [facility] Name: Barron Stiles Age: 80 yrs Sex: Male : 1945 Arrival Date: 03/27/2025 Time: 05:25 Bed 3 Private MD: ED Physician Messi Victoria HPI: 03/27 05:39 This 80 yrs old Male presents to ER via Unassigned with complaints of trouble rn walking. 05:39 Patient reports was awake and approximately 2 hours ago had sudden onset difficulty rn walking, dizziness, coordination problems. No fall or trauma. No recent procedure or medication changes. Nursing staff reports had difficulty ambulating and required a lot of assistance to get into bed. Patient denies any chest pain or abdominal pain. Also reports diplopia. No speech problems.. Historical: - Allergies: 05:40 No Known Allergies; br2 - PMHx: 05:40 diabetes mellitus; Liver CA; br2 - PSHx: 05:40 Liver Cancer Surgery; liver tumor removed; br2 - Immunization history:: Adult Immunizations up to date. - Infectious Disease History:: Denies. - Family history:: not pertinent. - Social history:: Smoking status: Patient/guardian denies using tobacco, Patient/guardian denies using alcohol, street drugs. - Hospitalizations: : No recent hospitalization is reported. ROS: 05:39 Constitutional: Negative for fever, chills, and weight loss, Neck: Negative for injury, rn pain, and swelling, Cardiovascular: Negative for chest pain, palpitations, and edema, Respiratory: Negative for shortness of breath, cough, wheezing, and pleuritic chest pain, Abdomen/GI: Negative for abdominal pain, nausea, vomiting, diarrhea, and constipation, MS/Extremity: Negative for injury and deformity, Skin: Negative for injury, rash, and discoloration, Neuro: Negative for headache, positive for difficulty ambulating, positive for double vision Exam: 05:39 Constitutional: This is a well developed, well nourished patient who is awake, alert, rn patient seems very anxious Eyes: No nystagmus noted Cardiovascular: Regular rate and rhythm. No pulse deficits. Respiratory: Patient hyperventilating and appears anxious, was able to be coached down Abdomen/GI: Soft, nontender, no pulsatile masses Neuro: Awake and alert, GCS 15, oriented to person, place, time, and situation. Cranial nerves II-XII grossly intact. Motor strength 4 out of 5 throughout. Abnormal [id number] and [id number] involving left upper extremity and left lower extremity. Reports diplopia at this time. Normal sensation. 05:59 ECG was reviewed by the Attending Physician. rn Vital Signs: 05:36 BP 204 / 90; Pulse 96; Resp 24; Temp 97.2; Pulse Ox 94% on 2 lpm NC; Weight 74.84 kg; br2 Height 5 ft. 5 in. ; Pain 0/10; 06:23 BP 178 / 86; rn 06:33 BP 165 / 73; rn 06:51 vc1 07:00 aa5 05:36 Body Mass Index 27.46 (74.84 kg, 165.1 cm) br2 05:36 Pain Scale: Adult br2 06:51 See stroke paperwork for vital signs vc1 07:00 See paperchart for complete VS and NIHSS scores. aa5 NIH Stroke Scale Scores: 05:39 NIHSS Score: 2 vc1 05:39 NIHSS Score: 2 rn 07:00 NIHSS Score: 2 aa5 MDM: 05:28 Medical Screening Exam initiated rn 05:33 ED course: Last known normal 2 hours prior to arrival. rn 06:16 Discussion of test interpretation with radiology: I had a discussion with journal entry audit clerk regarding a test interpretation. Discussed CT findings with radiology, no acute findings on CT head, specifically no hemorrhage.. ED course: Delay in TNKase administration due to hypertension. 10 mg of labetalol given.. ED course: Spoke with patient and spouse, patient consented for TNKase as long as we can get his blood pressure into a safe range. They both understand risks and benefits and spouse confirms that this was sudden onset and this is not him at all.. 06:23 Differential diagnosis:. rn 06:25 Data reviewed: vital signs, nurses notes, lab test result(s), EKG, radiologic studies, rn CT scan. 06:25 Independent interpretation of the following test(s) in the Emergency Department CT rn Scan: My interpretation is CT head images negative for acute hemorrhage per my interpretation. 06:25 Test considered but Not performed: MRI: MRI not available. Counseling: I had a detailed rn discussion with the patient and/or guardian regarding the historical points, exam findings, and any diagnostic results supporting the discharge/admit diagnosis, lab results, radiology results, the need for further work-up and treatment in the hospital, the need to transfer to another facility, for higher level of care, [facility] does not immediately have the required specialist. 03/27 05:33 Order name: Basic Metabolic Panel; Complete Time: 06:16 rn 03/27 05:33 Order name: CBC with Diff; Complete Time: 05:58 rn 03/27 05:33 Order name: High Sensitivity Troponin; Complete Time: 06:16 rn 03/27 05:33 Order name: Protime (+inr); Complete Time: 05:58 rn 03/27 05:33 Order name: Ptt, Activated; Complete Time: 05:58 rn 03/27 05:43 Order name: Glucose, Ancillary Testing; Complete Time: 05:58 EDMS 03/27 06:05 Order name: CREATININE WHOLE BLOOD; Complete Time: 06:16 EDMS 03/27 05:33 Order name: CT Head Angio rn 03/27 05:33 Order name: CT Neck Angio rn 03/27 05:33 Order name: CT Stroke Brain w/o Contrast rn 03/27 05:33 Order name: Stroke CXR 1 View rn 03/27 05:33 Order name: Accucheck; Complete Time: 05:40 rn 03/27 05:33 Order name: Cardiac monitoring; Complete Time: 05:58 rn 03/27 05:33 Order name: EKG - Nurse/Tech; Complete Time: 05:35 rn 03/27 05:33 Order name: IV Saline Lock; Complete Time: 05:40 rn 03/27 05:33 Order name: Labs collected and sent; Complete Time: 05:40 rn 03/27 05:33 Order name: NPO; Complete Time: 05:40 rn 03/27 05:33 Order name: O2 Per Protocol; Complete Time: 05:40 rn 03/27 05:33 Order name: O2 Sat Monitoring; Complete Time: 05:40 rn 03/27 05:33 Order name: Stroke Swallow Screen; Complete Time: 06:47 rn EC:59 Rate is 93 beats/min. Rhythm is regular. QRS [place] is Normal. LA interval is normal. QRS rn interval is normal. QT interval is normal. No Q waves. T waves are Normal. No ST changes noted. Clinical impression: NSR w/ Non-specific ST/T Changes. Interpreted by me. Reviewed by me. Administered Medications: 05:55 Drug: Labetalol IV 5 mg IV at calculated rate once Route: IV; Rate: calculated rate; vc1 Site: left antecubital; 06:11 Drug: Labetalol IV 5 mg IV at calculated rate once; not a repeat, is for 2nd labetalol vc1 given prior to TNK Route: IV; Rate: calculated rate; Site: left antecubital; 06:28 Drug: TNK FOR STROKE - Tenecteplase IV (Administer 10 ml NS flush BEFORE and vc1 AFTER tenecteplase) 0.25 mg/kg IV at per protocol once; 0.25mg/kg, MAX DOSE 25 mg, IVP over 5 seconds {Co-Signature: bm8 (Cirilo Morales RN).} Route: IV; Rate: per protocol; Site: left antecubital; 06:30 Drug: niCARdipine IV 2.5 mg/hr IV at calculated rate See Administration Instructions; vc1 (Standard concentration 25 mg / 250 mL NS); Recommended max rate 15 mg/hr; Titrate 2.5 mg/hr as often as every 15 minutes to achieve goal (see titration policy); Goal parameter SBP less than 160 mmHg Route: IV; Rate: calculated rate; Site: left antecubital; Point of Care Testing: Blood Glucose: 05:36 Blood Glucose: 228 mg/dL; br2 Ranges: Critical Glucose Levels:Adult <50 mg/dl or >400 mg/dl <40 mg/dl or >180 mg/dl Disposition: 06:25 Critical Care:. rn Disposition Summary: 03/27/25 06:27 Transfer Ordered Notes: Transfer Location: [facility] rn Reason: Higher level of care rn Condition: Stable rn Problem: new rn Symptoms: are unchanged rn Accepting Physician: (03/27/25 07:34) aa5 Diagnosis - Cerebral infarction, unspecified rn - Diplopia rn - Ataxia, unspecified rn Forms: - Medication Reconciliation Form rn - SBAR form software engineer kernel time excluding procedures: 06:25 Critical care time: Bedside Care: 65 minutes, Family Intervention: 10 minutes. Total rn time: 75 minutes NIH Stroke Scale - NIH Stroke Score Date: 03/27/2025 Time: 05:39 Total Score = 2 10. Dysarthria (speech clarity - read or repeat words) - 0(Normal) 11. Extinction and Inattention (visual/tactile/auditory/spatial/personal) - 0(No abnormality) 1a. Level of Consciousness (LOC) - 0(Alert) 1b. Level of Consciousness (LOC) (Month \T\ Age) - 0(Both) 1c. LOC Commands (Open \T\ Closes Eyes/Construction Superintendent) - 0(Both) 2. Best Gaze (Lateral Gaze Paresis) - 0(Normal) 3. Visual Field Loss - 0(No visual loss) 4. Facial Palsy - 0(Normal) 5a. Left Arm: Motor (10-second hold) - 0(No drift) 5b. Right Arm: Motor (10-second hold) - 0(No drift) 6a. Left Leg: Motor (5-second hold - always test supine) - 0(No drift) 6b. Right Leg: Motor (5-second hold - always test supine) - 0(No drift) 7. Limb Ataxia (finger/nose \T\ heel/melchor - test with eyes open) - 2(Present in two limbs) 8. Sensory Loss (pinprick arms/legs/face) - 0(Normal) 9. Best Language: Aphasia (description/naming/reading) - 0(No aphasia) Initials: vc1 NIH Stroke Scale - NIH Stroke Score Date: 03/27/2025 Time: 05:39 Total Score = 2 10. Dysarthria (speech clarity - read or repeat words) - 0(Normal) 11. Extinction and Inattention (visual/tactile/auditory/spatial/personal) - 0(No abnormality) 1a. Level of Consciousness (LOC) - 0(Alert) 1b. Level of Consciousness (LOC) (Month \T\ Age) - 0(Both) 1c. LOC Commands (Open \T\ Closes Eyes/Construction Superintendent) - 0(Both) 2. Best Gaze (Lateral Gaze Paresis) - 0(Normal) 3. Visual Field Loss - 0(No visual loss) 4. Facial Palsy - 0(Normal) 5a. Left Arm: Motor (10-second hold) - 0(No drift) 5b. Right Arm: Motor (10-second hold) - 0(No drift) 6a. Left Leg: Motor (5-second hold - always test supine) - 0(No drift) 6b. Right Leg: Motor (5-second hold - always test supine) - 0(No drift) 7. Limb Ataxia (finger/nose \T\ heel/melchor - test with eyes open) - 2(Present in two limbs) 8. Sensory Loss (pinprick arms/legs/face) - 0(Normal) 9. Best Language: Aphasia (description/naming/reading) - 0(No aphasia) Initials: sreedhar NIH Stroke Scale - NIH Stroke Score Date: 03/27/2025 Time: 07:00 Total Score = 2 10. Dysarthria (speech clarity - read or repeat words) - 0(Normal) 11. Extinction and Inattention (visual/tactile/auditory/spatial/personal) - 0(No abnormality) 1a. Level of Consciousness (LOC) - 0(Alert) 1b. Level of Consciousness (LOC) (Month \T\ Age) - 0(Both) 1c. LOC Commands (Open \T\ Closes Eyes/Construction Superintendent) - 0(Both) 2. Best Gaze (Lateral Gaze Paresis) - 0(Normal) 3. Visual Field Loss - 0(No visual loss) 4. Facial Palsy - 0(Normal) 5a. Left Arm: Motor (10-second hold) - 0(No drift) 5b. Right Arm: Motor (10-second hold) - 0(No drift) 6a. Left Leg: Motor (5-second hold - always test supine) - 0(No drift) 6b. Right Leg: Motor (5-second hold - always test supine) - 0(No drift) 7. Limb Ataxia (finger/nose \T\ heel/melchor - test with eyes open) - 2(Present in two limbs) 8. Sensory Loss (pinprick arms/legs/face) - 0(Normal) 9. Best Language: Aphasia (description/naming/reading) - 0(No aphasia) Initials: aa5 Signatures: Dispatcher [employer] EDMS Messi Victoria MD MD rn Calderon, Audri RN RN aa5 Carlee Lobo RN RN vc1 Leti Lugo RN RN br2 Cirilo Morales RN bm8 Corrections: (The following items were deleted from the chart) 05:34 05:34 Head Angio+CT.RAD.BRZ ordered. EDMS EDMS 05:34 05:34 Neck Angio+CT.RAD.BRZ ordered. EDMS EDMS 05:34 05:34 CT-STROKE BRAIN W/O CONTRAST+CT.RAD.BRZ ordered. EDMS EDMS 05:34 05:34 Chest Single View+RAD.RAD.BRZ ordered. EDMS EDMS 07:34 06:27 Dr. eli aa5
--- NOTE | 2025-03-27 06:35 | RAD REPORT ---
EXAM DESCRIPTION: Chest Single View CLINICAL HISTORY: code stroke COMPARISON: None TECHNIQUE: Single AP view of the chest. FINDINGS: Lung volumes adequate. Cardiac silhouette is normal in size. Aortic calcifications. No pneumothorax. No large pleural effusion. No focal consolidation. No acute bony finding. IMPRESSION: No evidence of acute cardiopulmonary disease. Electronically signed by: Africa Land MD 03/27/2025 06:27 AM CDT RP TYG Due to temporary technical issues with the PACS/[employer] reporting system, reports are being mj d by the in-house radiologist without review as a courtesy to ensure prompt reporting the interpreting radiologist is fully responsible for the content of the report. Transcribed Date/Time: 03/27/2025 6:35 AM
--- NOTE | 2025-03-27 06:37 | RAD REPORT ---
EXAM: 1. CT neck angiography with intravenous contrast. 2. CT head angiography with intravenous contrast. CLINICAL DATA: 80 years Male stroke alert. Ataxia and diplopia. TECHNICAL DATA: Following dynamic intravenous nonionic contrast infusion, multiple axial helical CT images with multi planar reconstructions were obtained through the head and neck. Coronal and sagittal MIP images were performed. The CT study is performed according to ALARA (as low as reasonably achievable) or ALA RA/IMAGE GENTLY, with automatic adjustment of mA and/or kV according to patient size. Performed on: 03/27/2025 at 5:55 AM COMPARISONS: Head CT performed on 03/27/2025 at 5:[address] head report from 09/13/2023 and brain MRI report from 02/12/2022. These images were not available for review. FINDINGS: CTA NECK: AORTA: The aortic arch is incompletely visualized on this study. There appears to be conventional branching of the aortic arch. The left subclavian artery, left common carotid artery and innominate artery are patent. VERTEBRAL ARTERIES: The LEFT vertebral artery is normal in caliber and contour without evidence of dissection or signific ant stenosis. The RIGHT vertebral artery is normal in caliber and contour without evidence of dissection or signifi cant stenosis. CAROTID ARTERIES: The LEFT common carotid artery is unremarkable. There is no evidence of stenosis, dissection or occlu carey The carotid bulb demonstrates no significant plaque. The LEFT internal carotid artery is normal in caliber and contour without evidence of significant stenosis, dissection or occlusion. The LEFT external carotid artery is unremarkable. The RIGHT common carotid artery is unremarkable. There is no evidence of stenosis, dissection or occl usion. The carotid bulb demonstrates mild atheromatous and calcified plaque resulting in stenosis of the proximal right ICA measuring less than 50%. The RIGHT internal carotid artery is unremarkable. There is no evidence of stenosis, dissection or occlusion. The RIGHT external carotid artery is unremarkable. CTA HEAD: LEFT: INTERNAL CAROTID ARTERY: The distal internal carotid artery is unremarkable. There are atherosclerotic calcifications along th e cavernous left ICA. ANTERIOR CEREBRAL ARTERY: The A1 segment is normal in caliber and contour. The A2 segment is normal i n caliber and contour. The region of the anterior communicating artery is unremarkable. MIDDLE CEREBRAL ARTERY: The M1 segment is normal in caliber and contour. The M2 branches are normal i n caliber and contour. POSTERIOR CEREBRAL ARTERY: The P1 segment is hypoplastic. There is a origin of the left posteri or cerebral artery. The P2 segment is normal in caliber and contour. VERTEBRAL ARTERY: The intradural left vertebral artery is normal in caliber and contour. There are mi ld atherosclerotic calcifications along the intradural left vertebral artery. RIGHT: INTERNAL CAROTID ARTERY: The distal internal carotid artery is unremarkable. There are atherosclerotic calcifications along th e cavernous right ICA. ANTERIOR CEREBRAL ARTERY: The A1 segment is normal in caliber and contour. The A2 segment is normal i n caliber and contour. MIDDLE CEREBRAL ARTERY: The M1 segment is normal in caliber and contour. The M2 branches are normal i n caliber and contour. POSTERIOR CEREBRAL ARTERY: The P1 segment is hypoplastic. There is a origin of the right environmental department manager ior cerebral artery. The P2 segment is normal in caliber and contour. VERTEBRAL ARTERY: The intradural right vertebral artery is normal in caliber and contour. BASILAR ARTERY: The basilar artery is normal in caliber and contour. DURAL VENOUS SINUSES: The dural venous sinuses are patent. NON-ANGIOGRAPHIC FINDINGS: The visualized lung apices are clear. The thyroid gland is normal in size and configuration. There ar e degenerative changes along the cervical spine without evidence of acute osseous injury. There are remote postsurgical changes of the right mastoid cavity. There is partial opacification of the remain ing right mastoid air cells. The paranasal sinuses are clear. The orbital contents are grossly unremarkable. IMPRESSION: CTA NECK: 1. Mild atheromatous and calcified plaque along the right carotid bulb resulting in stenosis of the proximal right ICA measuring less than 50%. 2. Otherwise, unremarkable CTA of the neck. There is no evidence of significant stenosis as per the NASCET criteria. 3. The aortic arch is incompletely visualized on this study. CTA HEAD: 1. 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 2. Otherwise, unremarkable intracranial CTA. There is no evidence of large vessel occlusion, signif icant stenosis, aneurysm or other vascular malformation. 3. Remote postsurgical changes of the right mastoid cavity with partial opacification of the remain ing right mastoid air cells. These critical findings were discussed with Dr. Messi Victoria on 03/27/2025 at 6:16 AM central time Electronically signed by: Sandra Ryan DO 03/27/2025 06:33 AM CDT RP Due to temporary technical issues with the PACS/[employer] [place] reporting system, reports are being mj d by the in-house radiologist without review as a courtesy to ensure prompt reporting the interpreting radiologist is fully responsible for the content of the report. Transcribed Date/Time: 03/27/2025 6:36 AM
[2025-03-27 10:43] VITALS: TEMP 97.2; O2SAT 94
[2025-03-27 10:46] VITALS: BP 165/73
== END 2025-03-27 07:34 | disposition short-term general hospital (02) ==
LOC: ER 05:25
DX: I63.9 Cerebral infarction, unspecified (principal); H53.2 Diplopia; R29.702 NIHSS score 2; E11.9 Type 2 diabetes mellitus without complications; Z85.05 Personal history of malignant neoplasm of liver
CPT/HCPCS: 92977; 93005; 85025; 80048; 36415; 85610; 82565; 82947; 85730; 84484; 70496; 70498; 70450; 71045; 96375; 96374; 99285; Q9967; J3101